=== PATIENT | male | born 1955 | race Two or more races ===

== ENCOUNTER 2017-04-07 09:10 | Emergency (ER) | payer OTHER, MEDICAID ==
[~2017-04-07] VITALS: Ht 172.7 cm; Wt 92.5 kg
[2017-04-07] MEDS ORDERED: PANTOPRAZOLE 40 MG/10 ML VIAL IV STA (09:31)
[2017-04-07] MEDS ORDERED: SODIUM CHLORIDE 0.9% 500 ML IVB ONE (09:31)
[2017-04-07] MEDS ORDERED: MORPHINE SULFATE 4 MG/ML SYRG IV ONE (09:45)
[2017-04-07] MEDS ORDERED: ONDANSETRON HCL 4 MG/2 ML VIAL IV ONE (09:45)
[2017-04-07 09:52] LABS: Basophils # (auto) 0 uL; Basophils % (auto) 0.9 % (0.0-2.0); Eosinophils # (auto) 0.2 uL; Eosinophils % (auto) 4.6 % (0.0-7.0); Hematocrit 42.2 % (41.0-53.0); Hemoglobin 14.4 g/dL (13.5-17.5); Lymphocytes # (auto) 1.8 uL; Lymphocytes % (auto) 33.6 % (10.0-50.0); Mean Corpuscular Hemoglobin 32.9 pg (28.0-32.0); Mean Corpuscular Hgb Conc. 34.2 g/dL (32.0-36.0); Mean Corpuscular Volume 96.1 fL (80.0-100.0); Mean Platelet Volume 7.9 fL (6.9-10.8); Monocytes # (auto) 0.5 uL; Monocytes % (auto) 8.6 % (0.0-12.0); Neutrophils # (auto) 2.7 uL; Neutrophils % (auto) 52.3 % (37.0-80.0); Nucleated Red Blood Cells % 0.1 %; Platelet Count (auto) 221 10^3/uL (140-450); Red Cell Distribution Width 13.4 % (11.8-14.3); White Blood Cell 5.2 10^3/uL (4.4-10.8)
[2017-04-07 10:24] LABS: Alkaline Phosphatase 62 U/L (45-117); Amylase 38 U/L (25-115); Anion Gap 9 (5-15); Aspartate Aminotransferase 15 U/L (15-37); BUN/Creatinine Ratio 11.4; Bilirubin, Total 0.6 mg/dL (0.2-1.0); Blood Urea Nitrogen 8 mg/dL (7-18); Calcium 8.4 mg/dL (8.5-10.1); Carbon Dioxide 24 mmol/L (21-32); Chloride 105 mmol/L (98-107); GFR African American 148 mL/min; GFR Non-African American 122 mL/min; Glucose 117 mg/dL (74-106); Magnesium 2.2 mg/dL (1.6-2.6); Potassium 3.8 mmol/L (3.5-5.1); Sodium 138 mmol/L (136-145); Total Protein 7.5 g/dL (6.4-8.2)
[2017-04-07 14:02] VITALS: BP 114/79
[2017-04-07 14:26] LABS: Urine Bilirubin Negative (Negative); Urine Blood Negative /uL (Negative); Urine Glucose Normal (Normal); Urine Ketone Negative (Negative); Urine Nitrite Negative (Negative); Urine RBC <1 /hpf (0 - 3); Urine Urobilinogen Normal (Negative)
[2017-04-07 14:47] LABS: Urine Color Straw (Yellow)
== END 2017-04-07 14:19 | disposition home or self-care (01) ==
LOC: ER 09:10
DX: K29.70 Gastritis, unspecified, without bleeding (principal); R07.89 Other chest pain; E78.5 Hyperlipidemia, unspecified; Z88.0 Allergy status to penicillin
CPT/HCPCS: 36415; 76705; 80053; 81001; 82150; 83690; 83735; 84484; 85025; 93005; 94761; 96361; 96374; 96375; 99285; C9113; J2270; J2405; J7040

== ENCOUNTER 2021-03-24 06:16 | Day surgery (SDC) | payer OTHER, MEDICAID ==
[~2021-03-24] VITALS: Ht 172.7 cm; Wt 90.7 kg
[~2021-03-24 06:16] MED LIST: AMIT50TA5 PO; ASPI-543 PO; ATOR80TA PO; CHOL1CAP58 PO; DIPH50TA9 PO; DOCU100C10 PO; DOCU100T15 PO; ETOD400T3 PO; FINA5TAB4 PO; HYDR-4833 PO; LACT10SO3 PO; LUBI8CAP4 PO; MET50T PO; METO10TA3 PO; OMEP-260 PO; TAMS0.4C36 PO
[2021-03-24] MEDS ORDERED: VERAPAMIL 2.5MG/ML INJ 2ML VIAL IV ONE (07:45)
[2021-03-24] MEDS ORDERED: HEPARIN SODIUM (PORCINE) 5000 UNITS/ML 1ML VIAL ONE (07:45)
[2021-03-24] MEDS ORDERED: ANGIOMAX 250 MG VIAL IV ONE (07:45)
[2021-03-24] MEDS ORDERED: fentaNYL CITRATE 100 MCG/2 ML VL ONE (07:45)
[2021-03-24] MEDS ORDERED: MIDAZOLAM HCL 2MG/2ML 2ml VIAL (1mg/ml) ONE (07:46)
[2021-03-24] MEDS ORDERED: SODIUM CHL 0.9% 0 ML ONE (07:46)
[2021-03-24] MEDS ORDERED: LIDOCAINE 2%HCL (LOCAL ANESTH.) INJ 20ML MDV ONE (07:49)
[2021-03-24] MEDS ORDERED: IOHEXOL 350 MG/ML 100ML IJ ONE (07:49)
[2021-03-24] MEDS ORDERED: IODIXANOL 320MG/ML 100ML BTL IV ONE (08:44)
== END 2021-03-24 11:20 | disposition home or self-care (01) ==
LOC: CATH 06:16
PROVIDERS: ATTEND Internal Medicine Cardiovascular Disease
DX: R94.39 Abnormal result of other cardiovascular function study (principal); I25.10 Atherosclerotic heart disease of native coronary artery without angina pectoris; I10 Essential (primary) hypertension; E78.5 Hyperlipidemia, unspecified; Z87.891 Personal history of nicotine dependence; K21.9 Gastro-esophageal reflux disease without esophagitis; M19.90 Unspecified osteoarthritis, unspecified site; Z20.822 Contact with and (suspected) exposure to COVID-19
CPT/HCPCS: 93458; C1769; C1894; J1644; J2250; J3010; J7030; Q9967; U0003; 99152

== ENCOUNTER 2021-04-19 03:04 | Emergency (ER) | payer OTHER, MEDICAID ==
[~2021-04-19] VITALS: Ht 177.8 cm; Wt 95.3 kg
[~2021-04-19 03:04] MED LIST changes: -DOCU100C10 PO
[2021-04-19 03:10] VITALS: BP 132/77
[2021-04-19 04:53] LABS: Urine Bacteria FEW /hpf (None Seen); Urine Blood 3+ /uL (Negative); Urine Specific Gravity 1.005 (1.001-1.035); Urine WBC 4 /hpf (0 - 3)
[2021-04-19 06:02] LABS: Basophils # (auto) 0.1 10 ^3/uL (0-0.2); Basophils % (auto) 0.6 % (0.0-2.0); Eosinophils # (auto) 0.2 10 ^3/uL (0-0.8); Eosinophils % (auto) 1.7 % (0.0-7.0); Hematocrit 45.4 % (41.0-53.0); Hemoglobin 15.4 g/dL (13.5-17.5); Lymphocytes # (auto) 1.6 10 ^3/uL (0.4-5.4); Lymphocytes % (auto) 17.6 % (10.0-50.0); Mean Corpuscular Hemoglobin 31.7 pg (28.0-32.0); Mean Corpuscular Volume 93.3 fL (80.0-100.0); Monocytes # (auto) 0.6 10 ^3/uL (0-1.3); Monocytes % (auto) 6.6 % (0.0-12.0); Neutrophils # (auto) 6.8 10 ^3/uL (1.6-8.6); Neutrophils % (auto) 73.5 % (37.0-80.0); Red Blood Cells 4.87 10^6/uL (4.5-5.90); Red Cell Distribution Width 14.3 % (11.8-14.3); White Blood Cell 9.2 10^3/uL (4.4-10.8)
[2021-04-19 06:19] LABS: Albumin 4.1 g/dL (3.4-5.0); BUN/Creatinine Ratio 11.9; Calcium 9.3 mg/dL (8.5-10.1); Potassium 3.4 mmol/L (3.5-5.1)
[2021-04-19 06:22] LABS: Bilirubin, Total 0.5 mg/dL (0.2-1.0); Total Protein 8.5 g/dL (6.4-8.2)
[2021-04-19] MEDS ORDERED: PERCOT PO (11:53)
[2021-04-19] MEDS ORDERED: TAM04C PO (11:53)
[2021-04-19] MEDS ORDERED: CIPR-173 PO (11:53)
== END 2021-04-19 14:47 | disposition home or self-care (01) ==
LOC: ER 03:04 → EDBD 03:04 → ER 14:45
DX: N20.0 Calculus of kidney (principal); N13.30 Unspecified hydronephrosis; E78.5 Hyperlipidemia, unspecified; Z88.0 Allergy status to penicillin
CPT/HCPCS: 36415; 74176; 80053; 81001; 85025

== ENCOUNTER → 2021-05-20 | Outpatient (CLI) | payer MEDICAID ==
[~2021-05-20] MED LIST changes: +CIPR-173 PO; +PERCOT PO; +TAM04C PO
[2021-05-20 14:20] LABS: Urine Bacteria NONE SEEN /hpf (None Seen); Urine Blood 3+ /uL (Negative); Urine Hyaline Cast FEW /lpf (0 - 2); Urine Mucus FEW (None Seen); Urine WBC 91 /hpf (0 - 3)
== END | disposition home or self-care (01) ==
LOC: LAB 13:51
PROVIDERS: ATTEND Urology
DX: N39.0 Urinary tract infection, site not specified (principal)
CPT/HCPCS: 81001; 87086

== ENCOUNTER 2021-08-02 06:35 | Day surgery (SDC) | payer OTHER, MEDICAID ==
[2021-07-30 10:55] LABS: Basophils # (auto) 0 10 ^3/uL (0-0.2); Basophils % (auto) 0.8 % (0.0-2.0); Eosinophils # (auto) 0.3 10 ^3/uL (0-0.8); Eosinophils % (auto) 5.4 % (0.0-7.0); Hematocrit 38.9 % (41.0-53.0); Hemoglobin 13.6 g/dL (13.5-17.5); Lymphocytes # (auto) 1.8 10 ^3/uL (0.4-5.4); Lymphocytes % (auto) 34.3 % (10.0-50.0); Mean Corpuscular Hemoglobin 32.6 pg (28.0-32.0); Mean Corpuscular Hgb Conc. 34.9 g/dL (32.0-36.0); Mean Corpuscular Volume 93.5 fL (80.0-100.0); Monocytes # (auto) 0.4 10 ^3/uL (0-1.3); Monocytes % (auto) 8.5 % (0.0-12.0); Neutrophils # (auto) 2.6 10 ^3/uL (1.6-8.6); Nucleated Red Blood Cells % 0.1 %; Red Blood Cells 4.17 10^6/uL (4.5-5.90); Red Cell Distribution Width 13.6 % (11.8-14.3); White Blood Cell 5.1 10^3/uL (4.4-10.8)
[2021-07-30 11:06] LABS: INR 1.1 (0.9-1.15); Partial Thromboplastin Time 29.6 sec (23.6-33.0)
[2021-07-30 11:10] LABS: Urine Bacteria NONE SEEN /hpf (None Seen); Urine Blood 1+ /uL (Negative); Urine Specific Gravity 1.007 (1.001-1.035); Urine WBC 1 /hpf (0 - 3)
[2021-07-30 11:19] LABS: Potassium 3.6 mmol/L (3.5-5.1)
[2021-07-30 11:24] LABS: Albumin 3.5 g/dL (3.4-5.0); BUN/Creatinine Ratio 8.8; Bilirubin, Total 0.5 mg/dL (0.2-1.0); Calcium 8.4 mg/dL (8.5-10.1); Total Protein 7.3 g/dL (6.4-8.2)
[~2021-08-02] VITALS: Ht 172.7 cm; Wt 98.0 kg
[~2021-08-02 06:35] MED LIST changes: +HYDR-4072 PO; -HYDR-4833 PO; -LUBI8CAP4 PO; +METR500T PO; -TAMS0.4C36 PO
[2021-08-02] MEDS ORDERED: CIPROFLOXACIN 400MG/200ML 200 ML IV ONE (08:06)
[2021-08-02] MEDS ORDERED: ONDANSETRON HCL 4 MG/2 ML VIAL ONE (09:32)
[2021-08-02] MEDS ORDERED: fentaNYL CITRATE 100 MCG/2 ML VL ONE (09:32)
[2021-08-02] MEDS ORDERED: MIDAZOLAM HCL 2MG/2ML 2ml VIAL (1mg/ml) ONE (09:32)
[2021-08-02] MEDS ORDERED: DexAMETHasone SOD PHOS 10MG/1ML VIAL INJ ONE (09:32)
[2021-08-02] MEDS ORDERED: PROPOFOL 10 MG/ML 20 ML IV ONE (09:32)
[2021-08-02] MEDS ORDERED: SODIUM CHLORIDE LOCK 10 ML ONE (09:32)
[2021-08-02] MEDS ORDERED: IOHEXOL 300 MG/ML 100ML BOTTLE IJ ONE (10:27)
[2021-08-02] MEDS ORDERED: POTATAB2 PO (10:51)
[2021-08-02 12:15] VITALS: BP 101/62
== END 2021-08-02 12:33 | disposition home or self-care (01) ==
LOC: SUR 06:35
PROVIDERS: ATTEND Urology
DX: N20.2 Calculus of kidney with calculus of ureter (principal); M19.90 Unspecified osteoarthritis, unspecified site; K21.9 Gastro-esophageal reflux disease without esophagitis; I10 Essential (primary) hypertension; G47.00 Insomnia, unspecified; Z95.0 Presence of cardiac pacemaker; Z88.0 Allergy status to penicillin; Z88.6 Allergy status to analgesic agent; Z79.899 Other long term (current) drug therapy; Z20.822 Contact with and (suspected) exposure to COVID-19; Z87.891 Personal history of nicotine dependence
CPT/HCPCS: 36415; 50590; 74420; 80053; 81001; 85025; 85610; 85730; J0744; J1100; J2250; J2405; J2704; J3010; Q9967; U0003

== ENCOUNTER 2022-02-23 09:17 | Inpatient (IN) | payer OTHER, MEDICAID ==
[~2022-02-23] VITALS: Ht 170.2 cm; Wt 81.8 kg
[~2022-02-23 09:17] MED LIST changes: +POTATAB2 PO
[2022-02-23] MEDS ORDERED: ASPirin 81 mg TAB PO ONE (10:15)
[2022-02-23] MEDS ORDERED: SODIUM CHLORIDE 0.9% 1,000 ML IV ONE (10:15)
[2022-02-23 10:36] LABS: BUN/Creatinine Ratio 12.7; Calcium 9.1 mg/dL (8.5-10.1); Magnesium 2.1 mg/dL (1.6-2.6)
[2022-02-23 10:39] LABS: Bilirubin, Total 0.5 mg/dL (0.2-1.0); INR 1.13 (0.9-1.15); Partial Thromboplastin Time 28.8 sec (24.6-33.4); Total Protein 7.5 g/dL (6.4-8.2)
[2022-02-23 10:44] LABS: Basophils # (auto) 0 10 ^3/uL (0-0.2); Basophils % (auto) 0.8 % (0.0-2.0); Eosinophils # (auto) 0.1 10 ^3/uL (0-0.8); Eosinophils % (auto) 2.8 % (0.0-7.0); Hematocrit 43.8 % (41.0-53.0); Hemoglobin 14.3 g/dL (13.5-17.5); Lymphocytes # (auto) 1.3 10 ^3/uL (0.4-5.4); Lymphocytes % (auto) 26.2 % (10.0-50.0); Mean Corpuscular Hemoglobin 31.3 pg (28.0-32.0); Mean Corpuscular Hgb Conc. 32.6 g/dL (32.0-36.0); Mean Corpuscular Volume 96.2 fL (80.0-100.0); Monocytes # (auto) 0.4 10 ^3/uL (0-1.3); Monocytes % (auto) 8.4 % (0.0-12.0); Neutrophils # (auto) 3.1 10 ^3/uL (1.6-8.6); Neutrophils % (auto) 61.8 % (37.0-80.0); Nucleated Red Blood Cells % 0.1 %; Red Blood Cells 4.55 10^6/uL (4.5-5.90); Red Cell Distribution Width 14.7 % (11.8-14.3)
[2022-02-23 11:15] LABS: Urine Bacteria NONE SEEN /hpf (None Seen); Urine Blood TRACE /uL (Negative); Urine Specific Gravity 1.005 (1.001-1.035); Urine WBC <1 /hpf (0 - 3)
[2022-02-23] MEDS ORDERED: ONDANSETRON HCL 4 MG/2 ML VIAL IV PRN ×2 (14:00→23:00)
[2022-02-23] MEDS ORDERED: MORPHINE SULFATE INJ 2 MG/ml SYRG IV PRN ×2 (14:00→23:00)
[2022-02-23] MEDS ORDERED: ACETAMINOPHEN 325 MG TAB PO PRN ×2 (14:00→23:00)
[2022-02-23] MEDS ORDERED: NITROGLYCERIN 0.4 MG SL TAB SL PRN ×3 (14:00→23:00)
[2022-02-23] MEDS ORDERED: MORPHINE SULFATE 4 MG/ML SYR/VIAL IV PRN (14:00)
[2022-02-23] MEDS ORDERED: FUROSEMIDE 40 MG/4 ML VIAL IV ONE (14:30)
[2022-02-23 14:48] LABS: INR 1.17 (0.9-1.15)
[2022-02-23] MEDS ORDERED: ATORVASTATIN 20 MG TAB PO SCH (18:00)
[2022-02-23] MEDS ORDERED: IODIXANOL 320MG/ML 100ML BTL IV ONE (19:23)
[2022-02-23] MEDS ORDERED: ETODOLAC 400 MG PO SCH (22:00)
[2022-02-23] MEDS ORDERED: METOPROLOL TARTRATE 50 MG TAB PO SCH ×2 (22:00)
[2022-02-23] MEDS ORDERED: HYDROcodone-ACET 10/325MG TAB PO SCH (22:00)
[2022-02-23] MEDS ORDERED: AMITRIPTYLINE HCL 10 MG TAB PO SCH ×2 (22:00→22:38)
[2022-02-24 06:45] LABS: Basophils # (auto) 0 10 ^3/uL (0-0.2); Basophils % (auto) 0.6 % (0.0-2.0); Eosinophils # (auto) 0.1 10 ^3/uL (0-0.8); Eosinophils % (auto) 1.9 % (0.0-7.0); Hematocrit 41.5 % (41.0-53.0); Hemoglobin 14.2 g/dL (13.5-17.5); Lymphocytes # (auto) 1.5 10 ^3/uL (0.4-5.4); Lymphocytes % (auto) 25.2 % (10.0-50.0); Mean Corpuscular Hemoglobin 32.7 pg (28.0-32.0); Mean Corpuscular Hgb Conc. 34.2 g/dL (32.0-36.0); Mean Corpuscular Volume 95.3 fL (80.0-100.0); Monocytes # (auto) 0.4 10 ^3/uL (0-1.3); Monocytes % (auto) 6.8 % (0.0-12.0); Neutrophils # (auto) 3.8 10 ^3/uL (1.6-8.6); Neutrophils % (auto) 65.5 % (37.0-80.0); Nucleated Red Blood Cells % 0.1 %; Red Blood Cells 4.36 10^6/uL (4.5-5.90); Red Cell Distribution Width 14.3 % (11.8-14.3); White Blood Cell 5.9 10^3/uL (4.4-10.8)
[2022-02-24 07:12] LABS: Potassium 3.8 mmol/L (3.5-5.1)
[2022-02-24 07:20] LABS: Albumin 3.8 g/dL (3.4-5.0); BUN/Creatinine Ratio 10.5; Bilirubin, Total 0.7 mg/dL (0.2-1.0); Total Protein 7.4 g/dL (6.4-8.2)
[2022-02-24] MEDS ORDERED: PANTOPRAZOLE 40 MG/10 ML VIAL INJ IV SCH ×2 (10:00)
[2022-02-24] MEDS ORDERED: ETODOLAC 400 MG PO SCH (10:00)
[2022-02-24] MEDS ORDERED: FINASTERIDE 5 MG TAB PO SCH ×2 (10:00)
[2022-02-24] MEDS ORDERED: CHOLECALCIFEROL (VITD3) 1,000UNIT=25mCg TAB PO SCH ×2 (10:00)
[2022-02-24] MEDS ORDERED: METOCLOPRAMIDE HCL 10 MG TAB PO SCH ×2 (10:00)
[2022-02-24] MEDS ORDERED: FUROSEMIDE 20 MG/2 ML VIAL IV SCH ×2 (10:00)
[2022-02-24] MEDS ORDERED: METOPROLOL TARTRATE 50 MG TAB PO SCH (10:00)
[2022-02-24] MEDS ORDERED: TAMSULOSIN HYDROCHLORIDE 0.4 MG CAP PO SCH ×2 (10:00)
[2022-02-24] MEDS ORDERED: DOCUSATE SOD 100 MG CAP PO SCH ×2 (10:00)
[2022-02-24] MEDS ORDERED: ENOXAPARIN SOD 40 MG/0.4 ML SYRINGE SC SCH ×2 (10:00)
[2022-02-24] MEDS ORDERED: ASPirin 81 mg TAB PO SCH ×2 (10:00)
[2022-02-24] MEDS: HYDROcodone-ACET 10/325MG TAB PO SCH ×2 (11:47→14:00)
[2022-02-24 13:01] VITALS: BP 115/61
[2022-02-24] MEDS ORDERED: ATORVASTATIN 20 MG TAB PO SCH (18:00)
[2022-02-24] MEDS ORDERED: AMITRIPTYLINE HCL 25 MG TAB PO SCH (22:00)
== END 2022-02-24 14:38 | disposition home or self-care (01) | DRG 291 ==
LOC: ER 09:17 → EDBD 09:17 → TELE 13:54
PROVIDERS: ADMIT Nurse Practitioner Family; ATTEND Nurse Practitioner Acute Care
DX: I11.0 Hypertensive heart disease with heart failure (principal); I50.33 Acute on chronic diastolic (congestive) heart failure; E78.00 Pure hypercholesterolemia, unspecified; N40.0 Benign prostatic hyperplasia without lower urinary tract symptoms; Z20.822 Contact with and (suspected) exposure to COVID-19; M17.0 Bilateral primary osteoarthritis of knee; Z79.899 Other long term (current) drug therapy; Z88.0 Allergy status to penicillin; Z88.6 Allergy status to analgesic agent; Z87.442 Personal history of urinary calculi; Z90.49 Acquired absence of other specified parts of digestive tract; Z95.0 Presence of cardiac pacemaker
CPT/HCPCS: 36415; 71045; 71260; 74177; 80053; 81001; 83735; 83880; 84484; 85025; 85379; 85610; 85730; 87426; 93005; 93306; 96360; C9113; G0378; Q9967

== ENCOUNTER 2023-12-22 14:09 | Emergency (ER) | payer OTHER, MEDICAID ==
[~2023-12-22] VITALS: Ht 172.7 cm; Wt 104.5 kg
[~2023-12-22 14:09] MED LIST changes: +AMIT50TA12 PO; -AMIT50TA5 PO; +ETOD-182 PO; -ETOD400T3 PO; -OMEP-260 PO; +OMEP1CAP70 PO; -TAM04C PO; +TAMS-35 PO
[2023-12-22 14:15] VITALS: BP 135/83; PULSE 86; RESP 18; O2SAT 98
[2023-12-22 15:29] LABS: Basophils # (auto) 0 10 ^3/uL (0-0.2); Basophils % (auto) 0.8 % (0.0-2.0); Eosinophils # (auto) 0.1 10 ^3/uL (0-0.8); Eosinophils % (auto) 2.7 % (0.0-7.0); Hematocrit 40.4 % (41.0-53.0); Hemoglobin 13.8 g/dL (13.5-17.5); Lymphocytes % (auto) 20.3 % (10.0-50.0); Mean Corpuscular Hemoglobin 32.5 pg (28.0-32.0); Mean Corpuscular Hgb Conc. 34.2 g/dL (32.0-36.0); Mean Corpuscular Volume 95.1 fL (80.0-100.0); Monocytes # (auto) 0.6 10 ^3/uL (0-1.3); Monocytes % (auto) 11.7 % (0.0-12.0); Neutrophils # (auto) 3.3 10 ^3/uL (1.6-8.6); Neutrophils % (auto) 64.5 % (37.0-80.0); Platelet Count (auto) 259 10^3/uL (140-450); Red Blood Cells 4.25 10^6/uL (4.5-5.90); Red Cell Distribution Width 14.8 % (11.8-14.3); White Blood Cell 5.1 10^3/uL (4.4-10.8)
[2023-12-22 15:46] LABS: Alanine Aminotransferase 62 U/L (7-40); Albumin 4.7 g/dL (3.2-4.8); Alkaline Phosphatase 51 U/L (46-116); Anion Gap 9 (5-15); Aspartate Aminotransferase 70 U/L (13-40); BUN/Creatinine Ratio 10.5 (10.0-20.0); Bilirubin, Total 0.3 mg/dL (0.2-1.0); Blood Urea Nitrogen 13 mg/dL (9-23); Calcium 9.6 mg/dL (8.7-10.4); Carbon Dioxide 23 mmol/L (20-30); Chloride 106 mmol/L (98-107); Glucose 114 mg/dL (74-106); Lipase 21 U/L (12-53); Potassium 4.1 mmol/L (3.5-5.1); Sodium 138 mmol/L (136-145); Total Protein 7.5 g/dL (5.7-8.2)
[2023-12-22] MEDS: IOHEXOL 300 MG/ML 100ML BOTTLE IJ ONE (17:33)
== END 2023-12-22 20:36 | disposition left against medical advice (07) ==
LOC: ER 14:09 → EDUNIT# 14:09 → EDBD 14:09 → ER 20:36
DX: R10.32 Left lower quadrant pain (principal); E78.5 Hyperlipidemia, unspecified; Z88.0 Allergy status to penicillin; Z88.6 Allergy status to analgesic agent; Z87.442 Personal history of urinary calculi
CPT/HCPCS: 36415; 74176; 74177; 80053; 83605; 83690; 84484; 85025; 93005; 99285; Q9967

== ENCOUNTER 2024-12-25 07:52 | Inpatient (IN) | payer OTHER, MEDICAID ==
[~2024-12-25] VITALS: Ht 172.7 cm; Wt 97.7 kg
--- NOTE | 2024-12-25 08:11 | ED.PDOC ---
GI ASSESSMENT HPI Comments A 69 YEAR OLD MALE PRESENTS TO THE ED WITH COMPLAINT OF LLQ ABDOMINAL PAIN THAT RADIATES TO LEFT LOWER BACK. PATIENT STATES HE HAS BEEN EXPERIENCING LEFT LOWER QUADRANT ABDOMINAL PAIN THAT RADIATES TO HIS LEFT LOWER BACK FOR THE PAST TWO DAYS. PATIENT NOTES THAT HE WENT TO [facility] YESTERDAY WHERE A CT SCAN AND LABS WERE DONE WHICH REVEALED A LEFT RENAL STONE, BUT HE IS NOT SURE OF THE SIZE OF THE STONE. PATIENT DENIES DYSURIA, HEMATURIA, FEVER, CHILLS, SHORTNESS OF BREATH, CHEST PAIN, ABDOMINAL PAIN, NAUSEA, VOMITING, HEADACHE, OR OTHER COMPLAINTS. NO OTHER SYMPTOMS OR MODIFYING FACTORS AT THIS TIME. PATIENT IS ALERT, ORIENTED X 4, AND HAS STEADY GAIT. Chief Complaint: LEFT LOWERABD PAIN Time Seen by MD: 07:53 Primary Care Provider: UNKNOWN Reviewed Notes: Nurses Notes, Medications, Allergies Allergies: Coded Allergies: Penicillins (Verified Allergy, Unknown, 03/22/21) Morphine (Unverified Adverse Reaction, Intermediate, N/V, 07/30/21) Home Meds Active Scripts Potassium Citrate (Urocit-K 10) 1,080 Mg Tab, 1080 MG PO Q8HR for 30 Days, #90 TAB Prov:DEMETRI MANN MD 08/02/21 Tamsulosin Hcl (Flomax) 0.4 Mg Cap, 1 CAP PO DAILY, #30 CAP 0 Refills Prov:ASHWIN NI MD 04/19/21 Oxycodone W/ Acetaminophen (Percocet 5/325MG) 1 Tab Tb, 1 TAB PO BID for 10 Days, #20 TAB Prov:ASHWIN NI MD 04/19/21 Ciprofloxacin Hcl (Cipro) 500 Mg Tab, 500 MG PO DAILY for 7 Days, #7 TAB Prov:ASHWIN NI MD 04/19/21 Reported Medications Hydrocodone-Acetaminophen (Hydrocodone/Acetaminophen 10-325 mg) 1 Tab Tab, 1 TAB PO TID, TAB 07/30/21 Metronidazole (Flagyl) 500 Mg Tab, 500 MG PO, TAB 07/30/21 Docusate Sodium (Docusate Sodium) 100 Mg Tab, 100 MG PO BID PRN for FOR CONSTIPATION 03/22/21 Metoclopramide Hcl (Metoclopramide Hcl) 10 Mg Tab, 10 MG PO DAILY for GERD 03/22/21 Etodolac (Etodolac) 400 Mg Tab, 400 MG PO BID for ARTHRITIS 03/22/21 Aspirin (Aspir-Low) 81 Mg Tab, 81 MG PO DAILY for HEART ATTACK PREVENTION 03/22/21 Omeprazole (Omeprazole Dr) 20 Mg Cap, 20 MG PO QAM for GERD 03/22/21 Lactulose (Lactulose) 10 Gm/15 Ml Judy, 10 GM PO DAILY PRN for CONSTIPATION 03/22/21 Amitriptyline Hcl (Amitriptyline Hcl) 50 Mg Tab, 50 MG PO HS PRN for FOR INSOMNIA 03/22/21 Finasteride (Finasteride) 5 Mg Tab, 5 MG PO DAILY for ENLARGED PROSTATE 03/22/21 Cholecalciferol (Vitamin D3 1.25 mg (82624 Ut)) 1 Cap Cap, 1 CAP PO DAILY for SUPPLEMENT 03/22/21 Diphenhydramine Hcl (Diphenhydramine Hcl) 50 Mg Tab, 50 MG PO DAILY PRN for ALLERGIES 03/22/21 Atorvastatin Calcium (Lipitor) 80 Mg Tab, 1 TAB PO QPM for HIGH CHOLESTEROL 03/22/21 Metoprolol Tartrate (LOPRESSOR TABLET) 50 Mg Tb, 1 TAB PO TID for HYPERTENSION 03/22/21 Information Source: Patient Mode of Arrival: Ambulatory Timing: Days Duration: Since onset, Days Prehospital treatment: None Quality: Aching, Colicky Vomitus: None Stool: Normal Severity: Moderate Recent: None Recent Hx of: None Pain Location: LLQ Modifying Factors: Nothing Associated sign and symptoms: Nausea, Abdominal Pain Past Medical History PAST MEDICAL HISTORY: High Lipids, Kidney Stones Surgical History: Appendectomy, Pacemaker Family History Family History: Reviewed,noncontributory to illness Social History Smoker: Non-Smoker Alcohol: Denies ETOH Use Drugs: Denies Drug Use Lives In: Home Constitutional: denies: chills, diaphoresis, fatigue, fever, malaise, sweats, weakness, others EENTM: denies: blurred vision, double vision, ear bleeding, ear discharge, ear drainage, ear pain, ear ringing, eye pain, eye redness, hearing loss, mouth pain, mouth swelling, nasal discharge, nose bleeding, nose congestion, nose pain, photophobia, tearing, throat pain, throat swelling, voice changes, others Respiratory: denies: cough, hemoptysis, orthopnea, SOB at rest, shortness of breath, SOB with excertion, stridor, wheezing, others Cardiovascular: denies: chest pain, dizzy spells, diaphoresis, Dyspnea on exertion, edema, irregular heart beat, left arm pain, lightheadedness, palpitations, PND, syncope, others Gastrointestinal: reports: abdominal pain (LLQ ABDOMINAL PAIN); denies: abdomen distended, blood streaked bowels, constipated, diarrhea, dysphagia, difficulty swallowing, hematemesis, melena, nausea, poor appetite, poor fluid intake, rectal bleeding, rectal pain, vomiting, others Genitourinary: denies: burning, dysuria, flank pain, frequency, hematuria, inco ntinence, penile discharge, penile sore, pain, testicle pain, testicle swelling, urgency, others Neurological: denies: dizziness, fainting, headache, left sided numbness, left sided weakness, numbness, paresthesia, pre-existing deficit, right sided numbness, right sided weakness, seizure, speech problems, tingling, tremors, weakness, others Musculoskeletal: reports: back pain (LEFT LOWER BACK); denies: gout, joint pain, joint swelling, muscle pain, muscle stiffness, neck pain, others Integumetry: denies: bruises, change in color, change in hair/nails, dryness, laceration, lesions, lumps, rash, wounds, others Allergic/Immunocompromised: denies: Difficulty Healing, Frequent Infections, Hives, Itching, others Hematologic/Lymphatic: denies: anemia, blood clots, easy bleeding, easy bruising, swollen glands, others Endocrine: denies: excessive hunger, excessive sweating, excessive thirst, excessive urination, flushing, intolerance to cold, intolerance to heat, unexplained weight gain, unexplained weight loss, others Psychiatric: denies: anxiety, bipolar disorder, depression, hopeless, panic dis order, schizophrenia, sleepless, suicidal, others All Other Systems: Reviewed and Negative Physical Exam General Appearance: No Apparent Distress, Normal HEENT: Normal ENT Inspection, PERRL/EOMI, Pharynx Normal, TMs Normal Neck: Full Range of Motion, Non-Tender, Normal, Normal Inspection Respiratory: Chest Non-Tender, Lungs Clear, No Accessory Muscle Use, No Respiratory Distress, Normal Breath Sounds Cardiovascular: No Edema, No JVD, No Murmur, No Gallop, Normal Peripheral Pulses, Regular Rate/Rhythm Breast Exam: Deferred Gastrointestinal: LLQ, No Organomegaly, No Pulsatile Mass, Normal Bowel Sounds, Soft, Tenderness (ON LEFT LOWER ABD TO LEFT LOWER BACK, NO GUARDING AND REBOUND TENDERNESS. ) Genitalia: Deferred Pelvic: Normal External Exam Rectal: Deferred Extremities: No calf tenderness, Normal capillary refill, Normal inspection, Normal range of motion, Non-tender, No pedal edema Musculoskeletal : Apperance: Normal Neurologic: Alert, contact worker II-XII nml as Tested, No Motor Deficits, Normal Affect, Normal Mood, No Sensory Deficits Cerebellar Function: Normal Reflexes: Normal Skin: Dry, Normal Color, Warm Peripheral Pulses: 2+ carotid (R), 2+ carotid (L), 2+ dorsalis pedis (R), 2+ dorsalis pedis (L) Lymphatic: No Adenopathy Was a procedure done? Was a procedure done?: No GI differential Dx Differential Diagnosis: Constipation, Diverticular disease, Gastritis/PUD, Gastroenteritis, Hepatitis, Inflammatory BD, Pancreatitis, UTI, Urolithiasis, Renal Failure, Kidney Stone X-Ray, Labs, Meds, VS Vital Signs Date Time Temp Pulse Resp B/P (MAP) Pulse Ox O2 Delivery O2 Flow Rate FiO2 12/25/24 11:24 63 16 92 Room Air* 0 21 12/25/24 08:32 69 18 94 Room Air 12/25/24 08:30 69 18 98/66 (77) 94 12/25/24 07:54 97.5 75 18 122/76 92 97.5 Lab Test 12/25/24 08:28 12/25/24 08:12 Range/Units White Blood Count 4.6 4.4-10.8 10^3/uL Red Blood Count 4.05 L 4.5-5.90 10^6/uL Hemoglobin 12.9 L 13.5-17.5 g/dL Hematocrit 37.7 L 41.0-53.0 % Mean Corpuscular Volume 92.9 80.0-100.0 fL Mean Corpuscular Hemoglobin 31.8 28.0-32.0 pg Mean Corpuscular Hemoglobin Concent 34.2 32.0-36.0 g/dL Red Cell Distribution Width 15.8 H 11.8-14.3 % Platelet Count 273 140-450 10^3/uL Mean Platelet Volume 7.7 6.9-10.8 fL Neutrophils (%) (Auto) 61.4 37.0-80.0 % Lymphocytes (%) (Auto) 26.7 10.0-50.0 % Monocytes (%) (Auto) 7.7 0.0-12.0 % Eosinophils (%) (Auto) 3.5 0.0-7.0 % Basophils (%) (Auto) 0.7 0.0-2.0 % Neutrophils # (Auto) 2.8 1.6-8.6 10 ^3/uL Lymphocytes # (Auto) 1.2 0.4-5.4 10 ^3/uL Monocytes # (Auto) 0.4 0-1.3 10 ^3/uL Eosinophils # (Auto) 0.2 0-0.8 10 ^3/uL Basophils # (Auto) 0 0-0.2 10 ^3/uL Nucleated Red Blood Cells 0.1 % Sodium Level 139 136-145 mmol/L Potassium Level 3.8 3.5-5.1 mmol/L Chloride Level 104 98-107 mmol/L Carbon Dioxide Level 25 20-31 mmol/L Anion Gap 10 5-15 Blood Urea Nitrogen 11 9-23 mg/dL Creatinine 1.21 0.700-1.30 mg/dL Glomerular Filtration Rate Calc 65 >90 mL/min BUN/Creatinine Ratio 9.1 L 10.0-20.0 Serum Glucose 113 H 74-106 mg/dL Calcium Level 9.6 8.7-10.4 mg/dL Urine Color Yellow Yellow Urine Clarity Turbid H Clear Urine pH 5.5 5.0-9.0 Urine Specific [place] 1.036 H 1.001-1.035 Urine Protein 1+ H Negative Urine Ketones Negative Negative Urine Blood 3+ H Negative /uL Urine Nitrite Negative Negative Urine Bilirubin Negative Negative Urine Urobilinogen Normal Negative mg/dL Urine Leukocyte Esterase Negative Negative /uL Urine RBC 392 0 - 3 /hpf Urine Microscopic WBC 6 H 0-3 /HPF Urine Squamous Epithelial Cells None seen <5 /hpf Urine Bacteria None seen None Seen /hpf Urine Mucus Few None Seen Urine Glucose Normal Normal mg/dL Current Medications Medications (Trade) Dose Ordered Sig/Alok Route Start Time Stop Time Status Last Admin Sodium Chloride 1,000 ml @ 1,000 mls/hr Q1H ONCE IV 12/25/24 08:15 12/25/24 09:14 DC 9/10/25 10:14 Ketorolac Tromethamine (Toradol Injection) 15 mg ONCE ONCE IV 12/25/24 08:15 12/25/24 08:16 DC 12/25/24 10:14 Acetaminophen/ Hydrocodone Bitart (Turney 10/325MG Tab) 1 tab ONCE ONCE PO 12/25/24 08:15 12/25/24 08:16 DC 12/25/24 08:33 Tamsulosin HCl (Flomax) 0.8 mg ONCE ONCE PO 12/25/24 11:00 12/25/24 11:01 DC 12/25/24 11:21 CLINICAL INFORMATION: Left lower abdominal pain radiating to the left lower back. TECHNIQUE: Axial CT images of the abdomen and pelvis were obtained without IV contrast. Coronal and sagittal reformatted images were obtained, reviewed, and stored. Evaluation of the parenchymal organs is limited without IV contrast. Evaluation of the bowel and mesentery is limited without oral contrast. All CT scans at this medical facility are performed using dose modulation techniques as appropriate to a performed exam including the following: Automated exposure control was utilized; adjustment of the MA and/or KV according to patient size; and use of iterative reconstruction technique. CTDIvol = 18.42 mGy DLP = 1126.04 mGy-cm COMPARISON: CT CT AB PEL WO CON-NO ORAL OR IV on DOS: 12/22/23, ECIDC on DOS: 02/23/22, CT ABD PELVIS WO CONTRAST on DOS: 04/19/21 FINDINGS: Lung bases: Dependent atelectasis in the lower lobes. Liver: Grossly unremarkable in its noncontrast enhanced appearance. No abnormal density or focal lesion identified. Biliary: Increased density in the gallbladder, possible sludge or vicarious excretion of contrast. No biliary ductal dilatation. Spleen: Unremarkable. Pancreas: Moderate fatty changes in the pancreas. Adrenal glands: Unremarkable. No mass. Kidneys: There is contrast visualized in the renal collecting systems and bladder, from recent IV contrast administration. Moderate left hydronephrosis. Can not exclude obstructing calculus in the distal left ureter, although difficult to delineate due to contrast in the left ureter. No contrast visualize d in the most distal aspect of the left ureter at the time of imaging. Multiple nonobstructing right renal calculi are seen. Limited evaluation for left renal calculi due to contrast in the left renal collecting system. Aorta/Vascular: Scattered atherosclerotic calcification. No abdominal aortic aneurysm. Retroperitoneum: No mass or lymphadenopathy. Bowel/mesentery: No small bowel obstruction. No free air or free fluid. Appendix is not visualized, appears to be surgically absent. Surgical anastomosis at the sigmoid colon. There are scattered small colonic diverticula without adjacent inflammatory changes to suggest diverticulitis. Calcific densities in the stomach, likely ingested material. Pelvic organs: Grossly unremarkable. Bladder: Excretion of IV contrast into the bladder. Moderate circumferential thickening of the bladder wall, may be partly due to underdistention. Abdominal wall: Small fat containing umbilical hernia. Supraumbilical ventral hernia with a loop of transverse colon extending into the hernia sac without definite evidence of obstruction. Bones: No acute fracture or suspicious intraosseous lesion. IMPRESSION: 1. Moderate left hydronephrosis. There is contrast in the renal collecting systems and bladder from recent IV contrast administration, limiting evaluation for renal and ureteral calculi. Possible obstructing calculus in the distal left ureter, with no contrast visualized in the most distal portion of the left ureter at the time of imaging. There are nonobstructing right renal calculi visualized. 2. Bladder wall thickening may be due to underdistention. Correlate clinically to exclude cystitis. 3. Supraumbilical ventral hernia containing a loop of transverse colon without definite evidence of obstruction. Correlate with clinical findings. 4. Small fat containing umbilical hernia. 5. Scattered colonic diverticula without adjacent inflammatory changes to suggest diverticulitis. 6. Additional findings as described above. ATED BY: JUAN MIGUEL WOODS DO DICTATED DATE/TIME: 12/25/24917 SIGNED BY: JUAN MIGUEL WOODS DO SIGNED DATE/TIME: 12/25/24917 CC: X-Ray, Labs, Meds, VS Comment EXTERNAL MEDICAL RECORDS REVIEWED: [NONE] INDEPENDENT HISTORIANS: [NONE] SOCIAL DETERMINANTS OF HEALTH: [NONE] LABS ORDERED: CBC, BMP, UA REVIEWED AND INTERPRETED RESULTS: BLOOD 3+ IMAGING ORDERED: CT ABD/PEL TREATMENTS ORDERED: NS 1L IV, TORADOL 15 MG IV, NORCO 5/325 MG P.O. PROCEDURES PERFORMED: NONE CRITICAL CARE TIME: NONE I HAVE DISCUSSED THE PATIENT WITH THE ATTENDING PHYSICIAN DR. GONZALEZ AND HE AGREES WITH THE PATIENT'S PLAN OF CARE. UPON MY PHYSICAL EXAMINATION, THE PATIENT HAD NO CVA TENDERNESS NOTED UPON PALP ATION AT THIS TIME. LABS WERE ORDERED FOR THE PATIENT WENT TO REVEALED BLOOD 3+ IN HIS URINE. A CT SCAN OF HIS ABDOMEN AND PELVIS WAS DONE WHICH REVEALED A NONOBSTRUCTING RIGHT RENAL STONE AND A POSSIBLE OBSTRUCTING CALCULUS IN THE LEFT DISTAL URETER. DUE TO THE PATIENT'S CT SCAN RESULTS, I HAVE DETERMINED THE PATIENT SHOULD BE ADMITTED FOR FURTHER TREATMENT AND EVALUATION. THE ON-CALL ADMITTING PHYSICIAN WILL BE CONTACTED FOR ADMISSION OF THIS PATIENT. Images Reviewed?: Images reviewed and evaluated by me Time of 1ST Reevaluation: 10:00 Reevaluation 1ST: Unchanged Patient Education/Counseling: Diagnosis, Treatment Family Education/Counseling: Diagnosis, Treatment Medical Screening: No EMC Exist At This Time SEPSIS Sepsis Screen Date sepsis recognized/suspect: Dec 25, 2024 Time Sepsis recognized/suspect: 754 Recent Procedure: No On Antibiotic Therapy: No Respiratory Rate >20: No Heart Rate >90: No Temp<36 C (96.8 F) or >38.3 C: No SBP <90 or MAP <65 mmHG: No New Acute Mental Status Change: No Is the patient on CPAP, BIPAP,: No Physician Orders Heplock Iv (12/25/24 ) Ct Ab Pel Wo Con-No Oral Or Iv (12/25/24 08:05) Vital Signs Date Time Temp Pulse Resp B/P (MAP) Pulse Ox O2 Delivery O2 Flow Rate FiO2 12/25/24 11:24 63 16 92 Room Air* 0 21 12/25/24 08:32 69 18 94 Room Air 12/25/24 08:30 69 18 98/66 (77) 94 12/25/24 07:54 97.5 75 18 122/76 92 97.5 Laboratory Tests Test 12/25/24 08:28 White Blood Count 4.6 10^3/uL (4.4-10.8) Medications Medications Dose Ordered Sig/Alok Route Start Time Stop Time Status Last Admin Dose Admin Acetaminophen/ Hydrocodone Bitart 1 tab ONCE ONCE PO 12/25/24 08:15 12/25/24 08:16 DC 12/25/24 08:33 Ketorolac Tromethamine 15 mg ONCE ONCE IV 12/25/24 08:15 12/25/24 08:16 DC 12/25/24 10:14 Sodium Chloride 1,000 ml @ 1,000 mls/hr Q1H ONCE IV 12/25/24 08:15 12/25/24 09:14 DC 12/25/24 10:14 Tamsulosin HCl 0.8 mg ONCE ONCE PO 12/25/24 11:00 12/25/24 11:01 DC 12/25/24 11:21 Departure 1 Departure Time of Disposition: 10:00 Impression: Primary Impression: Hydronephrosis with obstructing calculus Additional Impression: Right renal stone Disposition: ADMITTED INPATIENT Condition: Serious Critical Care Note Critical Care Time?: No Stability Stability form required: Yes Unstable for transfer: Requires medication, ED Physician Assesment, Possible rapid decline I personally scribed for GRICELDA QUAN ([email or web address]) on 12/25/24 at 08:11. Electronically submitted by Beny Dueñas ([email or web address]). I personally scribed for GRICELDA QUAN ([email or web address]) on 12/25/24 at 09:29. Electronically submitted by Beny Dueñas ([email or web address]). GRICELDA QUAN Dec 25, 2024 08:11
[2024-12-25 08:26] LABS: Urine Protein, UAD 1+ (Negative)
[2024-12-25] MEDS: HYDROcodone-ACET 10/325MG TAB PO ONE (08:33)
[2024-12-25 08:38] LABS: Hematocrit 37.7 % (41.0-53.0); Hemoglobin 12.9 g/dL (13.5-17.5); Mean Corpuscular Hemoglobin 31.8 pg (28.0-32.0); Mean Corpuscular Volume 92.9 fL (80.0-100.0); Nucleated Red Blood Cells % 0.1 %
[2024-12-25 08:48] LABS: Chloride 104 mmol/L (98-107); Potassium 3.8 mmol/L (3.5-5.1); Sodium 139 mmol/L (136-145)
[2024-12-25 08:49] LABS: Anion Gap 10 (5-15); Calcium 9.6 mg/dL (8.7-10.4); Carbon Dioxide 25 mmol/L (20-31)
[2024-12-25 08:54] LABS: BUN/Creatinine Ratio 9.1 (10.0-20.0); Blood Urea Nitrogen 11 mg/dL (9-23)
[2024-12-25 08:55] LABS: Glucose 113 mg/dL (74-106)
--- NOTE | 2024-12-25 09:20 | DVH ---
CLINICAL INFORMATION: Left lower abdominal pain radiating to the left lower back. TECHNIQUE: Axial CT images of the abdomen and pelvis were obtained without IV contrast. Coronal and s agittal reformatted images were obtained, reviewed, and stored. Evaluation of the parenchymal organs is limited without IV contrast. Evaluation of the bowel and mesentery is limited without oral contras t. All CT scans at this medical facility are performed using dose modulation techniques as appropriat e to a performed exam including the following: Automated exposure control was utilized; adjustment of the MA and/or KV according to patient size; and use of iterative reconstruction technique. CTDIvol = 18.42 mGy DLP = 1126.04 mGy-cm COMPARISON: CT CT AB PEL WO CON-NO ORAL OR IV on DOS: 12/22/23, ECIDC on DOS: 02/23/22, CT ABD PELVIS WO CONTRAST on DOS: 04/19/21 FINDINGS: Lung bases: Dependent atelectasis in the lower lobes. Liver: Grossly unremarkable in its noncontrast enhanced appearance. No abnormal density or focal lesi on identified. Biliary: Increased density in the gallbladder, possible sludge or vicarious excretion of contrast. No biliary ductal dilatation. Spleen: Unremarkable. Pancreas: Moderate fatty changes in the pancreas. Adrenal glands: Unremarkable. No mass. Kidneys: There is contrast visualized in the renal collecting systems and bladder, from recent IV co ntrast administration. Moderate left hydronephrosis. Can not exclude obstructing calculus in the dis david left ureter, although difficult to delineate due to contrast in the left ureter. No contrast visu alized in the most distal aspect of the left ureter at the time of imaging. Multiple nonobstructing r ight renal calculi are seen. Limited evaluation for left renal calculi due to contrast in the left re nal collecting system. Aorta/Vascular: Scattered atherosclerotic calcification. No abdominal aortic aneurysm. Retroperitoneum: No mass or lymphadenopathy. Bowel/mesentery: No small bowel obstruction. No free air or free fluid. Appendix is not visualized, a ppears to be surgically absent. Surgical anastomosis at the sigmoid colon. There are scattered small colonic diverticula without adjacent inflammatory changes to suggest diverticulitis. Calcific densiti es in the stomach, likely ingested material. Pelvic organs: Grossly unremarkable. Bladder: Excretion of IV contrast into the bladder. Moderate circumferential thickening of the bladd er wall, may be partly due to underdistention. Abdominal wall: Small fat containing umbilical hernia. Supraumbilical ventral hernia with a loop of t ransverse colon extending into the hernia sac without definite evidence of obstruction. Bones: No acute fracture or suspicious intraosseous lesion. IMPRESSION: 1. Moderate left hydronephrosis. There is contrast in the renal collecting systems and bladder from r ecent IV contrast administration, limiting evaluation for renal and ureteral calculi. Possible obstru cting calculus in the distal left ureter, with no contrast visualized in the most distal portion of t he left ureter at the time of imaging. There are nonobstructing right renal calculi visualized. 2. Bladder wall thickening may be due to underdistention. Correlate clinically to exclude cystitis. 3. Supraumbilical ventral hernia containing a loop of transverse colon without definite evidence of o bstruction. Correlate with clinical findings. 4. Small fat containing umbilical hernia. 5. Scattered colonic diverticula without adjacent inflammatory changes to suggest diverticulitis. 6. Additional findings as described above.
[2024-12-25] MEDS: SODIUM CHLORIDE 0.9% 1,000 ML IV ONE ×3 (10:14→20:40)
[2024-12-25] MEDS: KETOROLAC TROMETH 30 MG/ML 1ML VIAL IV ONE (10:14)
[2024-12-25] MEDS: TAMSULOSIN HYDROCHLORIDE 0.4 MG CAP PO ONE (11:21)
[2024-12-25 11:24] VITALS: PULSE 63; RESP 16; O2SAT 92
[2024-12-25] MEDS ORDERED: ACETAMINOPHEN 325 MG TAB PO PRN (13:45)
[2024-12-25] MEDS ORDERED: TAMSULOSIN HYDROCHLORIDE 0.4 MG CAP PO ONE (13:45)
[2024-12-25 14:46] LABS: Triglycerides 132.0 mg/dL (< 150)
[2024-12-25 14:47] LABS: Magnesium 1.8 mg/dL (1.6-2.6)
[2024-12-25 14:48] LABS: Cholesterol 107.0 mg/dL (< 200)
[2024-12-25 14:49] LABS: HDL Cholesterol 28.0 mg/dL (40-59)
--- NOTE | 2024-12-25 14:49 | DVH ---
CHEST RADIOGRAPH Indication: Abdominal pain Technique: Single frontal view of the chest was obtained COMPARISON: CHEST PORTABLE on DOS: 02/23/22, CXRP on DOS: 02/23/22, EKG on DOS: 02/23/22, EKG on DOS: FINDINGS: Lines and Tubes: Left chest pacemaker Lungs: Congestion Pleura: No effusion. No pneumothorax. Cardiomediastinal contours: Unremarkable Bones: Unremarkable IMPRESSION: Increased interstital prominence. This may represent pulmonary vascular congestion and/or viral pneum onia. Clinical correlation advised.
[2024-12-25 14:50] LABS: INR 1.2 (0.9-1.15); Partial Thromboplastin Time 29.5 SEC (24.5-34.5); Prothrombin Time 12.5 sec (9.3-11.8)
[2024-12-25 14:52] LABS: Lipase 33.0 U/L (12-53)
--- NOTE | 2024-12-25 15:39 | DVHINCON2 ---
Date of service: Dec 25, 2024 Referring Physician Hospitalist Reason for Consultation Left hydronephrosis History of Present Illness Patient was seen at [facility] yesterday were CT urogram was performed. He is admitted to [facility] for left lower quadrant abdominal pain. CT scan noncontrast study today shows collimation of the contrast on the left side to the distal UVJ region. Some of the contrast are seen in the renal pelvis demonstrating moderate hydronephrosis. Patient is not sure exact size of the stone. I will investigate by pulling records from [facility] and reviewing the data. In the meantime, patient is admitted for pain control and we will proceed with cystoscopy with left stent placement and ESWL tomorrow as inpatient. A 69 YEAR OLD MALE PRESENTS TO THE ED WITH COMPLAINT OF LLQ ABDOMINAL PAIN THAT RADIATES TO LEFT LOWER BACK. PATIENT STATES HE HAS BEEN EXPERIENCING LEFT LOWER QUADRANT ABDOMINAL PAIN THAT RADIATES TO HIS LEFT LOWER BACK FOR THE PAST TWO DAYS. PATIENT NOTES THAT HE WENT TO [facility] YESTERDAY WHERE A CT SCAN AND LABS WERE DONE WHICH REVEALED A LEFT RENAL STONE, BUT HE IS NOT SURE OF THE SIZE OF THE STONE. PATIENT DENIES DYSURIA, HEMATURIA, FEVER, CHILLS, SHORTNESS OF BREATH, CHEST PAIN, ABDOMINAL PAIN, NAUSEA, VOMITING, HEADACHE, OR OTHER COMPLAINTS. NO OTHER SYMPTOMS OR MODIFYING FACTORS AT THIS TIME. PATIENT IS ALERT, ORIENTED X 4, AND HAS STEADY GAIT. Chief Complaint: LEFT LOWERABD PAIN Primary Care Provider: UNKNOWN Reviewed Notes: Nurses Notes, Medications, Allergies Allergies: Coded Allergies: Penicillins (Verified Allergy, Unknown, 03/22/21) Morphine (Unverified Adverse Reaction, Intermediate, N/V, 07/30/21) Home Meds Active Scripts Potassium Citrate (Urocit-K 10) 1,080 Mg Tab, 1080 MG PO Q8HR for 30 Days, #90 TAB Prov:DEMETRI MANN MD 08/02/21 Tamsulosin Hcl (Flomax) 0.4 Mg Cap, 1 CAP PO DAILY, #30 CAP 0 Refills Prov:ASHWIN NI MD 04/19/21 Oxycodone W/ Acetaminophen (Percocet 5/325MG) 1 Tab Tb, 1 TAB PO BID for 10 Days, #20 TAB Prov:ASHWIN NI MD 04/19/21 Ciprofloxacin Hcl (Cipro) 500 Mg Tab, 500 MG PO DAILY for 7 Days, #7 TAB Prov:ASHWIN NI MD 04/19/21 Reported Medications Hydrocodone-Acetaminophen (Hydrocodone/Acetaminophen 10-325 mg) 1 Tab Tab, 1 TAB PO TID, TAB 07/30/21 Metronidazole (Flagyl) 500 Mg Tab, 500 MG PO, TAB 07/30/21 Docusate Sodium (Docusate Sodium) 100 Mg Tab, 100 MG PO BID PRN for FOR CONSTIPATION 03/22/21 Metoclopramide Hcl (Metoclopramide Hcl) 10 Mg Tab, 10 MG PO DAILY for GERD 03/22/21 Etodolac (Etodolac) 400 Mg Tab, 400 MG PO BID for ARTHRITIS 03/22/21 Aspirin (Aspir-Low) 81 Mg Tab, 81 MG PO DAILY for HEART ATTACK PREVENTION 03/22/21 Omeprazole (Omeprazole Dr) 20 Mg Cap, 20 MG PO QAM for GERD 03/22/21 Lactulose (Lactulose) 10 Gm/15 Ml Judy, 10 GM PO DAILY PRN for CONSTIPATION 03/22/21 Amitriptyline Hcl (Amitriptyline Hcl) 50 Mg Tab, 50 MG PO HS PRN for FOR INSOMNIA 03/22/21 Finasteride (Finasteride) 5 Mg Tab, 5 MG PO DAILY for ENLARGED PROSTATE 03/22/21 Cholecalciferol (Vitamin D3 1.25 mg (97834 Ut)) 1 Cap Cap, 1 CAP PO DAILY for SUPPLEMENT 03/22/21 Diphenhydramine Hcl (Diphenhydramine Hcl) 50 Mg Tab, 50 MG PO DAILY PRN for ALLERGIES 03/22/21 Atorvastatin Calcium (Lipitor) 80 Mg Tab, 1 TAB PO QPM for HIGH CHOLESTEROL 03/22/21 Metoprolol Tartrate (LOPRESSOR TABLET) 50 Mg Tb, 1 TAB PO TID for HYPERTENSION 03/22/21 Information Source: Patient Mode of Arrival: Ambulatory Timing: Days Duration: Since onset, Days Prehospital treatment: None Quality: Aching, Colicky Vomitus: None Stool: Normal Severity: Moderate Recent: None Recent Hx of: None Pain Location: LLQ Modifying Factors: Nothing Associated sign and symptoms: Nausea, Abdominal Pain Past Medical History High Lipids, Kidney Stones Past Surgical History Appendectomy, Pacemaker Right ESWL Left ureteral stent placement and removal Left ESWL (per Dr. Wharton) Allergies: Coded Allergies: Penicillins (Verified Allergy, Unknown, 03/22/21) Morphine (Unverified Adverse Reaction, Intermediate, N/V, 07/30/21) Home Meds Active Scripts Potassium Citrate (Urocit-K 10) 1,080 Mg Tab, 1080 MG PO Q8HR for 30 Days, #90 TAB Prov:DEMETRI MANN MD 08/02/21 Tamsulosin Hcl (Flomax) 0.4 Mg Cap, 1 CAP PO DAILY, #30 CAP 0 Refills Prov:ASHWIN NI MD 04/19/21 Oxycodone W/ Acetaminophen (Percocet 5/325MG) 1 Tab Tb, 1 TAB PO BID for 10 Days, #20 TAB Prov:ASHWIN NI MD 04/19/21 Ciprofloxacin Hcl (Cipro) 500 Mg Tab, 500 MG PO DAILY for 7 Days, #7 TAB Prov:ASHWIN NI MD 04/19/21 Reported Medications Hydrocodone-Acetaminophen (Hydrocodone/Acetaminophen 10-325 mg) 1 Tab Tab, 1 TAB PO TID, TAB 07/30/21 Metronidazole (Flagyl) 500 Mg Tab, 500 MG PO, TAB 07/30/21 Docusate Sodium (Docusate Sodium) 100 Mg Tab, 100 MG PO BID PRN for FOR CONSTIPATION 03/22/21 Metoclopramide Hcl (Metoclopramide Hcl) 10 Mg Tab, 10 MG PO DAILY for GERD 03/22/21 Etodolac (Etodolac) 400 Mg Tab, 400 MG PO BID for ARTHRITIS 03/22/21 Aspirin (Aspir-Low) 81 Mg Tab, 81 MG PO DAILY for HEART ATTACK PREVENTION 03/22/21 Omeprazole (Omeprazole Dr) 20 Mg Cap, 20 MG PO QAM for GERD 03/22/21 Lactulose (Lactulose) 10 Gm/15 Ml Judy, 10 GM PO DAILY PRN for CONSTIPATION 03/22/21 Amitriptyline Hcl (Amitriptyline Hcl) 50 Mg Tab, 50 MG PO HS PRN for FOR INSOMNIA 03/22/21 Finasteride (Finasteride) 5 Mg Tab, 5 MG PO DAILY for ENLARGED PROSTATE 03/22/21 Cholecalciferol (Vitamin D3 1.25 mg (81558 Ut)) 1 Cap Cap, 1 CAP PO DAILY for SUPPLEMENT 03/22/21 Diphenhydramine Hcl (Diphenhydramine Hcl) 50 Mg Tab, 50 MG PO DAILY PRN for ALLERGIES 03/22/21 Atorvastatin Calcium (Lipitor) 80 Mg Tab, 1 TAB PO QPM for HIGH CHOLESTEROL 03/22/21 Metoprolol Tartrate (LOPRESSOR TABLET) 50 Mg Tb, 1 TAB PO TID for HYPERTENSION 03/22/21 Current Medications Current Medications Medications (Trade) Dose Ordered Sig/Alok Route PRN Reason Start Time Stop Time Status Last Admin Acetaminophen (Tylenol Tablet) 650 mg Q6HP PRN PO PAIN SCALE 1-3 OR TEMP>100.4 12/25/24 13:45 UNV Ondansetron HCl (Zofran) 4 mg Q4HP PRN IV NAUSEA / VOMITING 12/25/24 13:45 UNV Morphine Sulfate 2 mg Q4HPRN PRN IV SEVERE PAIN (7-10 PAIN SCALE) 12/25/24 13:45 UNV Tamsulosin HCl (Flomax) 0.4 mg QPM PO 12/25/24 18:00 UNV Review of Systems Constitutional: denies: chills, diaphoresis, fatigue, fever, malaise, sweats, weakness, others EENTM: denies: blurred vision, double vision, ear bleeding, ear discharge, ear drainage, ear pain, ear ringing, eye pain, eye redness, hearing loss, mouth pain, mouth swelling, nasal discharge, nose bleeding, nose congestion, nose pain, photophobia, tearing, throat pain, throat swelling, voice changes, others Respiratory: denies: cough, hemoptysis, orthopnea, SOB at rest, shortness of breath, SOB with excertion, stridor, wheezing, others Cardiovascular: denies: chest pain, dizzy spells, diaphoresis, Dyspnea on exertion, edema, irregular heart beat, left arm pain, lightheadedness, palpitations, PND, syncope, others Gastrointestinal: reports: abdominal pain (LLQ ABDOMINAL PAIN); denies: abdomen distended, blood streaked bowels, constipated, diarrhea, dysphagia, difficulty swallowing, hematemesis, melena, nausea, poor appetite, poor fluid intake, rectal bleeding, rectal pain, vomiting, others Genitourinary: denies: burning, dysuria, flank pain, frequency, hematuria, incontinence, penile discharge, penile sore, pain, testicle pain, testicle swelling, urgency, others Neurological: denies: dizziness, fainting, headache, left sided numbness, left sided weakness, numbness, paresthesia, pre-existing deficit, right sided numbness, right sided weakness, seizure, speech problems, tingling, tremors, weakness, others Musculoskeletal: reports: back pain (LEFT LOWER BACK); denies: gout, joint pain, joint swelling, muscle pain, muscle stiffness, neck pain, others Integumetry: denies: bruises, change in color, change in hair/nails, dryness, laceration, lesions, lumps, rash, wounds, others Allergic/Immunocompromised: denies: Difficulty Healing, Frequent Infections, Hives, Itching, others Hematologic/Lymphatic: denies: anemia, blood clots, easy bleeding, easy bruising, swollen glands, others Endocrine: denies: excessive hunger, excessive sweating, excessive thirst, excessive urination, flushing, intolerance to cold, intolerance to heat, u nexplained weight gain, unexplained weight loss, others Psychiatric: denies: anxiety, bipolar disorder, depression, hopeless, panic disorder, schizophrenia, sleepless, suicidal, others All Other Systems: Reviewed and Negative Vital Signs Vital Signs Date Time Temp Pulse Resp B/P (MAP) Pulse Ox O2 Delivery O2 Flow Rate FiO2 12/25/24 13:39 97.5 60 20 118/66 (83) 6 97.5 12/25/24 11:24 Room Air* 0 21 Physical Exam General Appearance: No Apparent Distress, Normal HEENT: Normal ENT Inspection, PERRL/EOMI, Pharynx Normal, TMs Normal Neck: Full Range of Motion, Non-Tender, Normal, Normal Inspection Respiratory: Chest Non-Tender, Lungs Clear, No Accessory Muscle Use, No Respiratory Distress, Normal Breath Sounds Cardiovascular: No Edema, No JVD, No Murmur, No Gallop, Normal Peripheral Pulses, Regular Rate/Rhythm Breast Exam: Deferred Gastrointestinal: LLQ, No Organomegaly, No Pulsatile Mass, Normal Bowel Sounds, Soft, Tenderness (ON LEFT LOWER ABD TO LEFT LOWER BACK, NO GUARDING AND REBOUND TENDERNESS. 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, No Motor Deficits, Normal Affect, Normal Mood, No Sensory Deficits Cerebellar Function: Normal Reflexes: Normal Skin: Dry, Normal Color, Warm Peripheral Pulses: 2+ carotid (R), 2+ carotid (L), 2+ dorsalis pedis (R), 2+ dorsalis pedis (L) Lymphatic: No Adenopathy Labs/Diagnostic Data Labs Test 12/25/24 14:17 12/25/24 08:28 12/25/24 08:12 Range/Units Prothrombin Time 12.5 H 9.3-11.8 sec Prothrombin Time INR 1.20 H 0.9-1.15 Activated Partial Thromboplast Time 29.5 24.5-34.5 SEC Hemoglobin A1c 5.9 H <5.7 % A1C Lactic Acid Level 0.8 0.4-2.0 mmol/L Phosphorus Level 3.4 2.4-5.1 mg/dL Magnesium Level 1.8 1.6-2.6 mg/dL Triglycerides Level 132 < 150 mg/dL Cholesterol Level 107 < 200 mg/dL LDL Cholesterol 62 < 100 mg/dL HDL Cholesterol 28 L 40-59 mg/dL Lipase 33 12-53 U/L Vitamin B12 Level 494 211-911 pg/mL Vitamin D 25-Hydroxy 29.1 L 30.0-100 ng/mL White Blood Count 4.6 4.4-10.8 10^3/uL Red Blood Count 4.05 L 4.5-5.90 10^6/uL Hemoglobin 12.9 L 13.5-17.5 g/dL Hematocrit 37.7 L 41.0-53.0 % Mean Corpuscular Volume 92.9 80.0-100.0 fL Mean Corpuscular Hemoglobin 31.8 28.0-32.0 pg Mean Corpuscular Hemoglobin Concent 34.2 32.0-36.0 g/dL Red Cell Distribution Width 15.8 H 11.8-14.3 % Platelet Count 273 140-450 10^3/uL Mean Platelet Volume 7.7 6.9-10.8 fL Neutrophils (%) (Auto) 61.4 37.0-80.0 % Lymphocytes (%) (Auto) 26.7 10.0-50.0 % Monocytes (%) (Auto) 7.7 0.0-12.0 % Eosinophils (%) (Auto) 3.5 0.0-7.0 % Basophils (%) (Auto) 0.7 0.0-2.0 % Neutrophils # (Auto) 2.8 1.6-8.6 10 ^3/uL Lymphocytes # (Auto) 1.2 0.4-5.4 10 ^3/uL Monocytes # (Auto) 0.4 0-1.3 10 ^3/uL Eosinophils # (Auto) 0.2 0-0.8 10 ^3/uL Basophils # (Auto) 0 0-0.2 10 ^3/uL Nucleated Red Blood Cells 0.1 % Sodium Level 139 136-145 mmol/L Potassium Level 3.8 3.5-5.1 mmol/L Chloride Level 104 98-107 mmol/L Carbon Dioxide Level 25 20-31 mmol/L Anion Gap 10 5-15 Blood Urea Nitrogen 11 9-23 mg/dL Creatinine 1.21 0.700-1.30 mg/dL Glomerular Filtration Rate Calc 65 >90 mL/min BUN/Creatinine Ratio 9.1 L 10.0-20.0 Serum Glucose 113 H 74-106 mg/dL Calcium Level 9.6 8.7-10.4 mg/dL Urine Color Yellow Yellow Urine Clarity Turbid H Clear Urine pH 5.5 5.0-9.0 Urine Specific [place] 1.036 H 1.001-1.035 Urine Protein 1+ H Negative Urine Ketones Negative Negative Urine Blood 3+ H Negative /uL Urine Nitrite Negative Negative Urine Bilirubin Negative Negative Urine Urobilinogen Normal Negative mg/dL Urine Leukocyte Esterase Negative Negative /uL Urine RBC 392 0 - 3 /hpf Urine Microscopic WBC 6 H 0-3 /HPF Urine Squamous Epithelial Cells None seen <5 /hpf Urine Bacteria None seen None Seen /hpf Urine Mucus Few None Seen Urine Glucose Normal Normal mg/dL PATIENT: SKYLER CEE ACCT: [id number] UNIT: [id number] : 1955 LOC: ER ROOM / BED: / AGE / SEX: 69 / M ADM STATUS: REG ER SERVICE [id number] ORDERING PHYSICIAN: GRICELDA QUAN PROCEDURE(s): ABPL - CT AB PEL WO CON-NO ORAL OR IV REASON: left lower abd pain to left lower back ORDER NUMBER(s): [id number], ACCESSION NUMBER(s): [id number] CLINICAL INFORMATION: Left lower abdominal pain radiating to the left lower back. TECHNIQUE: Axial CT images of the abdomen and pelvis were obtained without IV contrast. Coronal and sagittal reformatted images were obtained, reviewed, and stored. Evaluation of the parenchymal organs is limited without IV contrast. Evaluation of the bowel and mesentery is limited without oral contrast. All CT scans at this medical facility are performed using dose modulation techniques as appropriate to a performed exam including the following: Automated exposure control was utilized; adjustment of the MA and/or KV according to patient size; and use of iterative reconstruction technique. CTDIvol = 18.42 mGy DLP = 1126.04 mGy-cm COMPARISON: CT CT AB PEL WO CON-NO ORAL OR IV on DOS: 12/22/23, [facility]IDC on DOS: 02/23/22, CT ABD PELVIS WO CONTRAST on DOS: 04/19/21 FINDINGS: Lung bases: Dependent atelectasis in the lower lobes. Liver: Grossly unremarkable in its noncontrast enhanced appearance. No abnormal density or focal lesion identified. Biliary: Increased density in the gallbladder, possible sludge or vicarious excretion of contrast. No biliary ductal dilatation. Spleen: Unremarkable. Pancreas: Moderate fatty changes in the pancreas. Adrenal glands: Unremarkable. No mass. Kidneys: There is contrast visualized in the renal collecting systems and bladder, from recent IV contrast administration. Moderate left hydronephrosis. Can not exclude obstructing calculus in the distal left ureter, although difficult to delineate due to contrast in the left ureter. No contrast visualized in the most distal aspect of the left ureter at the time of imaging. Multiple nonobstructing right renal calculi are seen. Limited evaluation for left renal calculi due to contrast in the left renal collecting system. Aorta/Vascular: Scattered atherosclerotic calcification. No abdominal aortic aneurysm. Retroperitoneum: No mass or lymphadenopathy. Bowel/mesentery: No small bowel obstruction. No free air or free fluid. Appendix is not visualized, appears to be surgically absent. Surgical anastomosis at the sigmoid colon. There are scattered small colonic diverticula without adjacent inflammatory changes to suggest diverticulitis. Calcific densities in the stomach, likely ingested material. Pelvic organs: Grossly unremarkable. Bladder: Excretion of IV contrast into the bladder. Moderate circumferential thickening of the bladder wall, may be partly due to underdistention. Abdominal wall: Small fat containing umbilical hernia. Supraumbilical ventral hernia with a loop of transverse colon extending into the hernia sac without definite evidence of obstruction. Bones: No acute fracture or suspicious intraosseous lesion. IMPRESSION: 1. Moderate left hydronephrosis. There is contrast in the renal collecting systems and bladder from recent IV contrast administration, limiting evaluation for renal and ureteral calculi. Possible obstructing calculus in the distal left ureter, with no contrast visualized in the most distal portion of the left ureter at the time of imaging. There are nonobstructing right renal calculi visualized. 2. Bladder wall thickening may be due to underdistention. Correlate clinically to exclude cystitis. 3. Supraumbilical ventral hernia containing a loop of transverse colon without definite evidence of obstruction. Correlate with clinical findings. 4. Small fat containing umbilical hernia. 5. Scattered colonic diverticula without adjacent inflammatory changes to suggest diverticulitis. 6. Additional findings as described above. ATED BY: JUAN MIGUEL WOODS DO DICTATED DATE/TIME: 12/25/24917 SIGNED BY: JUAN MIGUEL WOODS DO SIGNED DATE/TIME: 12/25/24917 CC: Assessment Presumed left distal ureteral calculus Left hydronephrosis Left abdominal pain Right renal stone Plan/Recommendation Hold aspirin use Cystoscopy with left ureteral stent placement and possible lithotripsy.of left distal ureteral and right renal stones Plan discussed with: Patient, Other DEMETRI MANN MD Dec 25, 2024 15:39
[2024-12-25] MEDS ORDERED: MANNITOL FTV 25% 12.5 GM/50 ML 50 ML IV ONE (16:45)
--- NOTE | 2024-12-25 17:09 | DVH ---
Indication: Urolithiasis Technique: XY KUB ABDOMEN SINGLE VIEWXY Comparison: None FINDINGS/IMPRESSION: Large volume stool in the colon. Calculi projecting over the right kidney measuring 7 mm, 3 mm, 7 mm. No evidence for free intraperitoneal air. Postsurgical changes left pelvis
[2024-12-25] MEDS ORDERED: AMITRIPTYLINE HCL 25 MG TAB PO PRN ×2 (19:15)
[2024-12-25 20:07] VITALS: PULSE 63; RESP 20; O2SAT 95
[2024-12-25] MEDS: MANNITOL FTV 25% 12.5 GM/50 ML 50 ML IV ONE (20:40)
--- NOTE | 2024-12-25 20:43 | DVHHP2 ---
History of Present Illness History of Present Illness This is a 69-year-old male with past medical history of CHF, permanent pacemaker-2019 ([facility]), hypertension, hyperlipidemia, type 2 diabetes mellitus, depression, vitamin-D deficiency, insomnia came to ER today with a complaint of left flank pain which started 2 days earlier and getting worse which is 10/10 intensity, on and off, sharp in nature, radiates to lower abdomen. Patient denies any hematuria or dysuria. Similar symptoms 3 months back, Patient visited [facility] 3 months ago and lithotripsy done. Patient stated he passed 2-3 stone in urine after lithotripsy procedure. Angiogram done 2022 and 1 stent placed. Currently denies any fever, chest pain, cough, headache, or any other acute distress. PAST MEDICAL HISTORY: High Lipids, Kidney Stones Surgical History: Appendectomy, Pacemaker Family History: noncontributory Social History: Smoker: Non-Smoker Alcohol: Denies ETOH Use Drugs: Denies Drug Use Lives In: Home Review of Systems Constitutional: Yes: Malaise; No: Fever, Chills, Sweats, Weakness, Other Eyes: No: Pain, Vision change, Conjunctivae inflammation, Eyelid inflammation, Other, Redness ENT: No: Ear pain, Ear discharge, Nose pain, Nose discharge, Nose congestion, Mouth pain, Mouth swelling, Throat pain, Throat swelling, Other Respiratory: No: Cough, Dry, Shortness of breath, SOB with excertion, Wheezing, Hemoptysis, Pleuritic Pain, Sputum, Wheezing, Other Cardiovascular: No: Chest Pain, Palpitations, Orthopnea, Paroxysmal Noc. Dyspnea, Edema, Lt Headedness, Other Gastrointestinal: Nausea, Abdominal Pain; No: Vomiting, Diarrhea, Constipation, Melena, Hematochezia, Other Genitourinary: No Dysuria, No Frequency, No Incontinence, No Hematuria, No Retention, No Other Musculoskeletal: No: other, neck pain, shoulder pain, arm pain, back pain, hand pain, leg pain, foot pain Skin: No: Rash, Lesions, Jaundice, Bruising, Other Neurological: No: Weakness, Numbness, Incoordination, Change in speech, Confusion, Seizures, Other Allergies: Coded Allergies: Penicillins (Verified Allergy, Unknown, 03/22/21) Morphine (Unverified Adverse Reaction, Intermediate, N/V, 07/30/21) Medications Current Medications Medications Dose Ordered Sig/Alok Route Start Time Stop Time Status Last Admin Dose Admin Acetaminophen 650 mg Q6HP PRN PO 12/25/24 13:45 Ondansetron HCl 4 mg Q4HP PRN IV 12/25/24 13:45 Morphine Sulfate 2 mg Q4HPRN PRN IV 12/25/24 13:45 UNV Tamsulosin HCl 0.4 mg QPM PO 12/26/24 18:00 Aspirin 81 mg DAILY PO 12/26/24 10:00 Finasteride 5 mg DAILY PO 12/26/24 10:00 Atorvastatin Calcium 80 mg HS PO 12/25/24 22:00 Diphenhydramine HCl 50 mg DAILY PRN PO 12/25/24 19:15 Lactulose 15 ml DAILY PRN PO 12/26/24 10:00 Patient Own Medication 20 mg QAM PO 12/26/24 07:00 Insulin Human Lispro AC SC 12/25/24 17:00 Metoprolol Tartrate 100 mg BID PO 12/25/24 22:00 Amitriptyline HCl 50 mg HS PRN PO 12/25/24 19:15 Exam Vital Signs Vital Signs Date Time Temp Pulse Resp B/P (MAP) Pulse Ox O2 Delivery O2 Flow Rate FiO2 12/25/24 18:43 62 16 122/83 (96) 94 12/25/24 13:39 97.5 97.5 12/25/24 11:24 Room Air* 0 21 General Appearance: Alert, Oriented X3, Cooperative, mild distress HEENT: Atraumatic, PERRLA, EOMI Respiratory: Clear to auscultation, Normal air movement Cardiovascular: Regular rate, Normal S1, Normal S2, No murmurs Abdominal: Soft, No tenderness, Other (Left costovertebral angle tender on deep palpation) Extremities: No clubbing, No cyanosis, No edema, Normal pulses, No tenderness/swelling Skin: No breakdown, No significant lesion Neuro: Normal speech, Strength at 5/5 X4 ext Labs/Xrays Labs Test 12/25/24 14:17 12/25/24 08:28 12/25/24 08:12 Range/Units Prothrombin Time 12.5 H 9.3-11.8 sec Prothrombin Time INR 1.20 H 0.9-1.15 Activated Partial Thromboplast Time 29.5 24.5-34.5 SEC Hemoglobin A1c 5.9 H <5.7 % A1C Lactic Acid Level 0.8 0.4-2.0 mmol/L Phosphorus Level 3.4 2.4-5.1 mg/dL Magnesium Level 1.8 1.6-2.6 mg/dL Triglycerides Level 132 < 150 mg/dL Cholesterol Level 107 < 200 mg/dL LDL Cholesterol 62 < 100 mg/dL HDL Cholesterol 28 L 40-59 mg/dL Lipase 33 12-53 U/L Vitamin B12 Level 494 211-911 pg/mL Vitamin D 25-Hydroxy 29.1 L 30.0-100 ng/mL Thyroid Stimulating Hormone (TSH) 2.65 0.55-4.78 uIU/mL White Blood Count 4.6 4.4-10.8 10^3/uL Red Blood Count 4.05 L 4.5-5.90 10^6/uL Hemoglobin 12.9 L 13.5-17.5 g/dL Hematocrit 37.7 L 41.0-53.0 % Mean Corpuscular Volume 92.9 80.0-100.0 fL Mean Corpuscular Hemoglobin 31.8 28.0-32.0 pg Mean Corpuscular Hemoglobin Concent 34.2 32.0-36.0 g/dL Red Cell Distribution Width 15.8 H 11.8-14.3 % Platelet Count 273 140-450 10^3/uL Mean Platelet Volume 7.7 6.9-10.8 fL Neutrophils (%) (Auto) 61.4 37.0-80.0 % Lymphocytes (%) (Auto) 26.7 10.0-50.0 % Monocytes (%) (Auto) 7.7 0.0-12.0 % Eosinophils (%) (Auto) 3.5 0.0-7.0 % Basophils (%) (Auto) 0.7 0.0-2.0 % Neutrophils # (Auto) 2.8 1.6-8.6 10 ^3/uL Lymphocytes # (Auto) 1.2 0.4-5.4 10 ^3/uL Monocytes # (Auto) 0.4 0-1.3 10 ^3/uL Eosinophils # (Auto) 0.2 0-0.8 10 ^3/uL Basophils # (Auto) 0 0-0.2 10 ^3/uL Nucleated Red Blood Cells 0.1 % Sodium Level 139 136-145 mmol/L Potassium Level 3.8 3.5-5.1 mmol/L Chloride Level 104 98-107 mmol/L Carbon Dioxide Level 25 20-31 mmol/L Anion Gap 10 5-15 Blood Urea Nitrogen 11 9-23 mg/dL Creatinine 1.21 0.700-1.30 mg/dL Glomerular Filtration Rate Calc 65 >90 mL/min BUN/Creatinine Ratio 9.1 L 10.0-20.0 Serum Glucose 113 H 74-106 mg/dL Calcium Level 9.6 8.7-10.4 mg/dL Urine Color Yellow Yellow Urine Clarity Turbid H Clear Urine pH 5.5 5.0-9.0 Urine Specific [place] 1.036 H 1.001-1.035 Urine Protein 1+ H Negative Urine Ketones Negative Negative Urine Blood 3+ H Negative /uL Urine Nitrite Negative Negative Urine Bilirubin Negative Negative Urine Urobilinogen Normal Negative mg/dL Urine Leukocyte Esterase Negative Negative /uL Urine RBC 392 0 - 3 /hpf Urine Microscopic WBC 6 H 0-3 /HPF Urine Squamous Epithelial Cells None seen <5 /hpf Urine Bacteria None seen None Seen /hpf Urine Mucus Few None Seen Urine Glucose Normal Normal mg/dL SEPSIS Sepsis Screen Date sepsis recognized/suspect: Dec 25, 2024 Time Sepsis recognized/suspect: 075 Recent Procedure: No On Antibiotic Therapy: No Respiratory Rate >20: No Heart Rate >90: No Temp<36 C (96.8 F) or >38.3 C: No SBP <90 or MAP <65 mmHG: No New Acute Mental Status Change: No Is the patient on CPAP, BIPAP,: No Physician Orders Admit (12/25/24 13:41) Code Status (12/25/24 13:41) Vital Signs .PER UNIT PROTOCOL (12/25/24 13:41) Review Orders With Adm.Md (12/25/24 13:41) Acetaminophen Tablet (Tylenol Tablet) (12/25/24 13:45) Notify Md Of Changes From Base (12/25/24 13:41) Advance Directive (12/25/24 13:41) Patient Condition (12/25/24 13:41) Allergies (12/25/24 13:41) Ondansetron Hcl (Zofran) (12/25/24 13:45) Morphine Sulfate Injection (12/25/24 13:45) Oxygen By Nasal Cannula (12/25/24 13:41) Stat Ekg For Chest Pain (12/25/24 13:41) Notify Of Changes From Base (12/25/24 13:41) Purchasing Administrative Assistant For 24 Hours (12/25/24 13:41) Emergency Dysrhythmia Protocol (12/25/24 13:41) Rhythm Strips Once Every Shift (12/25/24 13:41) Drug Screen (12/25/24 13:41) * Urology Consult (12/25/24 13:41) Electrocardigram (12/25/24 13:41) Chest Xray 1 View (12/25/24 13:45) Blood Culture (12/25/24 13:46) Urine Bacterial Culture (12/25/24 13:46) Obtain Consent For: (12/25/24 15:30) Obtain Consent For Anesthesia (12/25/24 15:30) Npo (Nothing By Mouth) Diet (12/26/24 Breakfast) Aspirin Enteric Coated Tablet (Ecotrin E (12/26/24 10:00) Finasteride Tablet (Proscar Tablet) (12/26/24 10:00) Atorvastatin (Lipitor) (12/25/24 22:00) Diphenhdramine Capsule (Benadryl Capsule (12/25/24 19:15) (Nf) Omeprazole (Omeprazole Dr) (12/26/24 07:00) Insulin Lispro (Human) (Humalog) (12/25/24 17:00) Metoprolol Tartrate Tablet (Lopressor Ta (12/25/24 22:00) Kub Abdomen Single View (12/25/24 16:34) Tamsulosin Hydrochloride (Flomax) (12/26/24 18:00) Amitriptyline Hcl Tablet (Elavil Tablet) (12/25/24 19:15) Lactulose Oral (12/26/24 10:00) Mannitol Ftv 25% 12.5 Gm/50 Ml (12/25/24 20:30) Sodium Chloride 0.9% (12/25/24 20:30) Vital Signs Date Time Temp Pulse Resp B/P (MAP) Pulse Ox O2 Delivery O2 Flow Rate FiO2 12/25/24 18:43 62 16 122/83 (96) 94 12/25/24 13:39 97.5 60 20 118/66 (83) 6 97.5 Laboratory Tests Test 12/25/24 14:17 Lactic Acid Level 0.8 mmol/L (0.4-2.0) Medications Medications Dose Ordered Sig/Alok Route Start Time Stop Time Status Last Admin Dose Admin Tamsulosin HCl 0.8 mg ONCE ONCE PO 12/25/24 11:00 12/25/24 11:01 DC 12/25/24 11:21 0.8 MG Assessment/Plan Assessment/Plan Acute pyelonephritis with right-sided nephrolithiasis Possible left distal ureteral calculus Left hydronephrosis CT abdomen and pelvis shows left renal calculus and right ureteric calculi Urology consulted Hold aspirin for today and cystoscopy with left ureteral stent placement and po ssible lithotripsy.of left distal ureteral and right renal stones NPO midnight UA shows nitrate and leukocyte esterase negative and no bacteria No indication of antibiotic at this time Encouraged oral fluid intake Acute on chronic diastolic heart failure Echo in 2021-decompression 60-70% History of sick sinus syndrome, status post pacemaker implant Metoprolol Aspirin Nitroglycerin 0.4 mg sublingually as needed Type 2 diabetes mellitus Home medication metformin Sliding scale Monitor blood sugar BPH Tamsulosin and finasteride Dyslipidemia Atorvastatin Medication: fenofibrate Diverticulosis CT abdomen and pelvis shows diverticulosis Umbilical hernia Outpatient follow-up GERD OMEPRAZOLE Depression Amitriptyline Insomnia Diphenhydramine 50 mg as needed OBESITY, BMI 33.1 Lifestyle modification Goals of care discussions. More than 23 minute spent with patient. Full code status. Case discussed with Dr. Thomas Plan discussed with: Patient, Other (Nurse) My Orders Orders - KATHY GOMEZ RESIDENT Procedure Category Date Status Time Aspirin Enteric PHA 12/26/24 In Process Coated Tablet 10:00 Finasteride Tablet PHA 12/26/24 In Process (Proscar Tablet) 10:00 Atorvastatin (Lipitor) PHA 12/25/24 In Process 22:00 Diphenhdramine PHA 12/25/24 In Process Capsule (Benadryl 19:15 (Nf) Omeprazole PHA 12/26/24 In Process (Omeprazole Dr) 07:00 Insulin Lispro PHA 12/25/24 In Process (Human) (Humalog) 17:00 Metoprolol Tartrate PHA 12/25/24 In Process Tablet (Lopressor Ta 22:00 Amitriptyline Hcl PHA 12/25/24 In Process Tablet (Elavil Tablet) 19:15 Lactulose Oral PHA 12/26/24 In Process 10:00 Date of Service: Dec 25, 2024 Billing Provider: JONATAN THOMAS MD Common Visit Codes: [id number] INP/OBS CARE (HIGH) Secondary Visit Codes: [id number]-[id number] CARE PLAN 30 MINUTES KATHY GOMEZ RESIDENT Dec 25, 2024 20:42
[2024-12-25 21:00] VITALS: BP 119/65; PULSE 63; RESP 20; TEMP 97.5; O2SAT 94
[2024-12-25] MEDS: INSULIN LISPRO (HUMAN) 100 UNITS/ML ML SC SCH (21:24)
[2024-12-25 21:58] LABS: Amphetamine Screen, Urine Neg (NEGATIVE); Barbiturate Scree,Urine Neg (NEGATIVE); Benzodiazephine Screen, Urine Neg (NEGATIVE); Cannabinoid Screen, Urine Neg (NEGATIVE); Cocaine Screen, Urine Neg (NEGATIVE); Opiate Scree,Urine Pos (NEGATIVE); Phencyclidine Screen, Urine Neg (NEGATIVE)
[2024-12-25] MEDS: METOPROLOL TARTRATE 50 MG TAB PO SCH (22:00)
[2024-12-25] MEDS: ATORVASTATIN 20 MG TAB PO SCH (22:26)
[2024-12-26] VITALS (7 sets, daily range): BP systolic 115–141; BP diastolic 51–75; PULSE 69–96; RESP 17–22; TEMP 97.5–98.3; O2SAT 91–97
[2024-12-26] MEDS: OMEPRAZOLE 20 MG PO SCH (06:14)
[2024-12-26] MEDS: ONDANSETRON HCL 4 MG/2 ML VIAL IV PRN (06:14)
[2024-12-26 07:09] LABS: Anion Gap 11 (5-15); Calcium 9.2 mg/dL (8.7-10.4); Carbon Dioxide 26 mmol/L (20-31); Chloride 104 mmol/L (98-107); Potassium 3.5 mmol/L (3.5-5.1); Sodium 141 mmol/L (136-145)
[2024-12-26 07:15] LABS: BUN/Creatinine Ratio 9.5 (10.0-20.0); Blood Urea Nitrogen 10 mg/dL (9-23); Glucose 84 mg/dL (74-106)
[2024-12-26 07:17] LABS: Hematocrit 35.9 % (41.0-53.0); Hemoglobin 12.6 g/dL (13.5-17.5); Mean Corpuscular Hemoglobin 32.3 pg (28.0-32.0); Mean Corpuscular Volume 92.3 fL (80.0-100.0); Nucleated Red Blood Cells % 0.1 %
[2024-12-26] MEDS: FINASTERIDE 5 MG TAB PO SCH (09:49)
[2024-12-26] MEDS ORDERED: LACTULOSE 20Gm/30ML SOLN PO PRN (10:00)
[2024-12-26] MEDS ORDERED: ASPirin-EC 81 mg tab PO SCH (10:00)
[2024-12-26] MEDS ORDERED: KETOROLAC TROMETH 30 MG/ML 1ML VIAL ONE (14:42)
[2024-12-26] MEDS ORDERED: LIDOCAINE 2% (LOCAL ANESTH.) PF 5ml SDV ONE (14:42)
[2024-12-26] MEDS ORDERED: PROPOFOL 10 MG/ML 20 ML IV ONE (14:42)
[2024-12-26] MEDS ORDERED: ONDANSETRON HCL 4 MG/2 ML VIAL ONE (14:42)
[2024-12-26] MEDS ORDERED: GLYCOPYRROLATE 0.2 MG/ML 1ML VIAL ONE (14:42)
[2024-12-26] MEDS ORDERED: KETAMINE 50mg/ML 1ml syringe ONE (14:42)
[2024-12-26] MEDS: CIPROFLOXACIN 400MG/200ML 200 ML IV ONE (14:48)
[2024-12-26] MEDS: IOHEXOL 300 MG/ML 100ML BOTTLE IJ ONE (15:55)
--- NOTE | 2024-12-26 16:51 | DVHNC2 ---
Procedure - OPERATIVE REPORT Pre-op. Diagnosis: Ureteral Stone - LEFT, distal 5, 6 and 7 mm Hydronephrosis - LEFT Flank Pain - LEFT Right renal stones, 6-7 mm Post-op. Diagnosis: Same as pre-op diagnosis Operation: Extracorporeal Shockwave Lithotripsy - LEFT distal ureteral Extracorporeal Shockwave Lithotripsy - right renal stones Cystoscopy, Ureteral stent placement - LEFT Anesthesia: General Indications: Informed Consent: Options were discussed. Treatments can include conservative therapy, Extra-corporeal shockwave therapy (ESWL), Ureteroscopy with laser lithotripsy vs extraction, PCNL (percutaneous nephrolithotomy); with or without the use of Stents or retrograde pyelography. Corresponding advantages and disadvantages were also discussed. Questions were addressed. Patient wishes to proceed with left ESWL and possible cystoscopy with left ureteral stent placement. Risks and benefits of the surgery were reviewed with patient which include but are not limited to infection, bleeding, urosepsis, renal hemorrhage/hematoma formation, ureteral perforation, ureteral stricture formation, need for further surgery if stone does not break, ureteral obstruction from stone fragments, cardiac arrthymia and risks of anesthesia. Despite these risks, patient wishes to proceed with the surgery. Patient fully understood and signed the consent. Details of Procedure: Under satisfactory anesthesia, the patient was positioned on the lithotripsy table in the lithotomy position. Area of the genitalia was prepped and draped in usual sterile manner. Twenty-two Serbian rigid cystoscope was used to inspect the urethra in the bladder. The left ureteric orifice was cannulated with six Serbian open-ended catheter and retrograde pyelogram was performed. This demonstrated multiple filling defects in the distal ureteral segment measuring five, six, and 7 mm stones. Guidewire was then inserted and accessed into the renal pelvis. Open-ended catheter was then removed and a five Serbian by 26 cm polaris loop ureteral stent was placed. Cystoscope was removed along with multiple bladder stones found that extruded from the left ureter with stent placement. Beavers catheter was inserted. Patient was positioned on the lithotripsy table to place the left distal ureteral calculi onto the F2 focus. Three thousand shocks were delivered at level 7-9 to treat the left distal ureteral calculi. Once the left distal ureteral calculi were treated, patient was repositioned so that the right lower pole renal stones are placed onto the F2 focus. The stones were treated with 2400 shock waves for fragmentation. Patient tolerated the procedure well. He was awakened and taken to recovery room in stable condition Specimens: None Complications: None Findings: Stone Laterality: Left distal ureteral stones, 5-7 mm and right lower pole renal stones, 6-7 mm Shocks Delivered: 3000 / 2400 Max Power settin /6 Fragmentation Quality: Well Ureteral stent size & length: [address] left ureteral stent Notes: Cystoscopy with stent removal in 2-4 weeks DEMETRI MANN MD Dec 26, 2024 16:51
[2024-12-26] MEDS ORDERED: SODIUM CHLORIDE LOCK 20 ML ONE (16:52)
[2024-12-26] MEDS ORDERED: fentaNYL CITRATE 100 MCG/2 ML VL ONE (17:18)
[2024-12-26] MEDS: TAMSULOSIN HYDROCHLORIDE 0.4 MG CAP PO SCH (18:00)
--- NOTE | 2024-12-26 19:20 | DVHPNRES ---
Progress Note Date Seen: Dec 26, 2024 Resident Creating Document: KATHY GOMEZ RESIDENT Medical Necessity Reason Pt with a Central, PICC or Fol: No Subjective Review of Systems This is a 69-year-old male with past medical history of CHF, permanent pacemaker-2019 ([facility]), hypertension, hyperlipidemia, type 2 diabetes mellitus, depression, vitamin-D deficiency, insomnia came to ER today with a complaint of left flank pain which started 2 days earlier and getting worse which is 10/10 intensity, on and off, sharp in nature, radiates to lower abdomen. Patient denies any hematuria or dysuria. Similar symptoms 3 months back, Patient visited [facility] 3 months ago and lithotripsy done. Patient stated he passed 2-3 stone in urine after lithotripsy procedure. Angiogram done 2022 and 1 stent placed. Currently denies any fever, chest pain, cough, headache, or any other acute distress. PAST MEDICAL HISTORY: High Lipids, Kidney Stones Surgical History: Appendectomy, Pacemaker Family History: noncontributory Social History: Smoker: Non-Smoker Alcohol: Denies ETOH Use Drugs: Denies Drug Use Lives In: Home Patient seen and evaluated in bedside. Not in acute distress. Consult appreciated. No acute event overnight. Objective vital signs Vital Sign Date Time Temp Pulse Resp B/P (MAP) Pulse Ox O2 Delivery O2 Flow Rate FiO2 12/26/24 18:47 97.7 82 13 125/57 (79) 94 97.7 12/26/24 18:30 Nasal Cannula 2.0 96 Total Intake and Output 12/25/24 12/25/24 12/26/24 15:00 23:00 07:00 Intake Total 1000 ml 1050 ml 0 ml Output Total 1000 ml Balance 1000 ml 1050 ml -1000 ml medications Current Medications Medications Dose Ordered Sig/Alok Route Start Time Stop Time Status Last Admin Dose Admin Acetaminophen 650 mg Q6HP PRN PO 12/25/24 13:45 Ondansetron HCl 4 mg Q4HP PRN IV 12/25/24 13:45 12/26/24 06:14 4 MG Morphine Sulfate 2 mg Q4HPRN PRN IV 12/25/24 13:45 Tamsulosin HCl 0.4 mg QPM PO 12/26/24 18:00 Finasteride 5 mg DAILY PO 12/26/24 10:00 Atorvastatin Calcium 80 mg HS PO 12/25/24 22:00 12/25/24 22:26 80 MG Diphenhydramine HCl 50 mg DAILY PRN PO 12/25/24 19:15 Lactulose 15 ml DAILY PRN PO 12/26/24 10:00 Patient Own Medication 20 mg QAM PO 12/26/24 07:00 12/26/24 06:14 20 MG Insulin Human Lispro AC SC 12/25/24 17:00 Metoprolol Tartrate 100 mg BID PO 12/25/24 22:00 Amitriptyline HCl 50 mg HS PRN PO 12/25/24 19:15 Examination General Appearance: Alert, Oriented X3, Cooperative, mild distress HEENT: Atraumatic, PERRLA, EOMI Respiratory: Clear to auscultation, Normal air movement Cardiovascular: Regular rate, Normal S1, Normal S2, No murmurs Abdominal: Soft, No tenderness, Other (Left costovertebral angle tender on deep palpation) Extremities: No clubbing, No cyanosis, No edema, Normal pulses, No tenderness/swelling Skin: No breakdown, No significant lesion Neuro: Normal speech, Strength at 5/5 X4 ext laboratory and microbiology Laboratory Tests 12/26/24 05:35 Test 12/26/24 05:35 Range/Units Serum Glucose 84 74-106 mg/dL Microbiology Date/Time Source Procedure Growth Status 12/25/24 20:55 Voided Urine Urine Culture - Preliminary Resulted 12/25/24 14:16 Blood Blood Culture - Preliminary NO GROWTH AFTER 24 HOURS OF INCUBATION. Resulted Problem List/Assessment/Plan Problem List/Assessment/Plan Acute pyelonephritis with right-sided nephrolithiasis Possible left distal ureteral calculus Left hydronephrosis CT abdomen and pelvis shows left renal calculus and right ureteric calculi Hold aspirin for today and cystoscopy with left ureteral stent placement and possible lithotripsy.of left distal ureteral and right renal stones X-ray abdomen shows: Calculi projecting over the right kidney measuring 7 mm, 3 mm, 7 mm. No evidence for free intraperitoneal air. UA shows nitrate and leukocyte esterase negative and no bacteria No indication of antibiotic at this time Encouraged oral fluid intake Urologycal procedure (12/26/2024): Extracorporeal Shockwave Lithotripsy - LEFT distal ureteral Extracorporeal Shockwave Lithotripsy - right renal stones Cystoscopy, Ureteral stent placement - LEFT. Follow-up with urology 1-2 weeks after discharge from hospital. Chronic diastolic heart failure Echo in 2021-decompression 60-70% History of sick sinus syndrome, status post pacemaker implant Metoprolol Aspirin Nitroglycerin 0.4 mg sublingually as needed Type 2 diabetes mellitus Home medication : metformin Sliding scale Monitor blood sugar BPH Tamsulosin and finasteride Dyslipidemia Atorvastatin Medication: fenofibrate Diverticulosis CT abdomen and pelvis shows diverticulosis Umbilical hernia Outpatient follow-up GERD OMEPRAZOLE Depression Amitriptyline Insomnia Diphenhydramine 50 mg as needed OBESITY, BMI 33.1 Lifestyle modification Goals of care discussions. More than 19 minute spent with patient. Full code status. Case discussed with Dr. aMe Plan discussed with: Patient, Other (Nurse) Date of Service: Dec 26, 2024 Billing Provider: JONATAN MAE MD Common Visit Codes: [id number] INP/OBS CARE(HIGH) KATHY GOMEZ RESIDENT Dec 26, 2024 19:20 BARBIE MABRY RESIDENT Dec 29, 2024 09:01 JONATAN MAE MD Dec 29, 2024 10:32
[2024-12-26] MEDS: MORPHINE SULFATE INJ 2 MG/ml SYRG IV PRN (20:40)
[2024-12-27 01:00] VITALS: BP 109/57; PULSE 91; RESP 18; TEMP 97.7; O2SAT 90
[2024-12-27 05:00] VITALS: BP 105/51; PULSE 75; RESP 20; TEMP 98; O2SAT 94
--- NOTE | 2024-12-27 05:44 | DVH ---
Exam: XY KUB ABDOMEN SINGLE VIEW Indication: left ureteral stent Comparison: XY KUB ABDOMEN SINGLE VIEW on DOS: 12/25/24, CT CT AB PEL WO CON-NO ORAL OR IV on DOS: 12/16 , CT CT AB PEL WITH IV CON ONLY on DOS: 12/22/23, CT CT AB PEL WO CON-NO ORAL OR IV on DOS: 12/22/23, KUB on DOS: 08/26/21 Technique: 2 radiographic views of the abdomen. Findings: Left ureteral stent. Nonobstructive bowel gas pattern noted. There is no definite evidence for pneumoperitoneum. No abnormal calcifications noted. Impression: 1. Left ureteral stent. 2. Nonobstructive bowel gas pattern.
[2024-12-27 06:13] LABS: Hematocrit 36.9 % (41.0-53.0); Hemoglobin 12.8 g/dL (13.5-17.5); Mean Corpuscular Hemoglobin 32.3 pg (28.0-32.0); Mean Corpuscular Volume 93.3 fL (80.0-100.0); Nucleated Red Blood Cells % 0.0 %
[2024-12-27 06:28] LABS: Anion Gap 10 (5-15); Carbon Dioxide 26 mmol/L (20-31); Chloride 106 mmol/L (98-107); Potassium 4.1 mmol/L (3.5-5.1); Sodium 142 mmol/L (136-145)
[2024-12-27 06:29] LABS: Calcium 9.2 mg/dL (8.7-10.4)
[2024-12-27 06:34] LABS: BUN/Creatinine Ratio 9.0 (10.0-20.0); Blood Urea Nitrogen 10 mg/dL (9-23)
[2024-12-27 06:43] LABS: Glucose 117 mg/dL (74-106)
[2024-12-27 08:00] VITALS: PULSE 77
[2024-12-27 09:00] VITALS: BP 105/59; PULSE 73; RESP 20; TEMP 98.3; O2SAT 91
[2024-12-27] MEDS ORDERED: LEVO750T40 PO (10:02)
[2024-12-27 12:28] VITALS: BP 101/57; PULSE 58; RESP 19; TEMP 98.1; O2SAT 97
[2024-12-27 12:58] VITALS: BP 105/70; PULSE 81; RESP 20; TEMP 98; O2SAT 90
--- NOTE | 2024-12-27 17:19 | DVHDSRES ---
Discharge Summary Date of Admission Resident Creating Document: KATHY GOMEZ RESIDENT Dec 25, 2024 at 13:41 Date of Discharge: Dec 27, 2024 Labs/Diagnostic Data: Laboratory Results Test 12/27/24 11:29 12/27/24 05:36 12/25/24 20:55 12/25/24 14:17 POC Glucose 122 mg/dl (70-106) White Blood Count 6.9 10^3/uL (4.4-10.8) Red Blood Count 3.95 10^6/uL (4.5-5.90) Hemoglobin 12.8 g/dL (13.5-17.5) Hematocrit 36.9 % (41.0-53.0) Mean Corpuscular Volume 93.3 fL (80.0-100.0) Mean Corpuscular Hemoglobin 32.3 pg (28.0-32.0) Mean Corpuscular Hemoglobin Concent 34.6 g/dL (32.0-36.0) Red Cell Distribution Width 15.3 % (11.8-14.3) Platelet Count 302 10^3/uL (140-450) Mean Platelet Volume 7.9 fL (6.9-10.8) Neutrophils (%) (Auto) 83.9 % (37.0-80.0) Lymphocytes (%) (Auto) 11.9 % (10.0-50.0) Monocytes (%) (Auto) 4.1 % (0.0-12.0) Eosinophils (%) (Auto) 0.0 % (0.0-7.0) Basophils (%) (Auto) 0.1 % (0.0-2.0) Neutrophils # (Auto) 5.7 10 ^3/uL (1.6-8.6) Lymphocytes # (Auto) 0.8 10 ^3/uL (0.4-5.4) Monocytes # (Auto) 0.3 10 ^3/uL (0-1.3) Eosinophils # (Auto) 0 10 ^3/uL (0-0.8) Basophils # (Auto) 0 10 ^3/uL (0-0.2) Nucleated Red Blood Cells 0.0 % Sodium Level 142 mmol/L (136-145) Potassium Level 4.1 mmol/L (3.5-5.1) Chloride Level 106 mmol/L (98-107) Carbon Dioxide Level 26 mmol/L (20-31) Anion Gap 10 (5-15) Blood Urea Nitrogen 10 mg/dL (9-23) Creatinine 1.11 mg/dL (0.700-1.30) Glomerular Filtration Rate Calc 72 mL/min (>90) BUN/Creatinine Ratio 9.0 (10.0-20.0) Serum Glucose 117 mg/dL (74-106) Calcium Level 9.2 mg/dL (8.7-10.4) Urine Opiates Screen Pos (NEGATIVE) Urine Fentanyl Screen Neg (NEGATIVE) Urine Barbiturates Screen Neg (NEGATIVE) Urine Phencyclidine Screen Neg (NEGATIVE) Urine Amphetamines Screen Neg (NEGATIVE) Urine Benzodiazepines Screen Neg (NEGATIVE) Urine Cocaine Screen Neg (NEGATIVE) Urine Cannabinoids Screen Neg (NEGATIVE) Prothrombin Time 12.5 sec (9.3-11.8) Prothrombin Time INR 1.20 (0.9-1.15) Activated Partial Thromboplast Time 29.5 SEC (24.5-34.5) Hemoglobin A1c 5.9 % A1C (<5.7) Lactic Acid Level 0.8 mmol/L (0.4-2.0) Phosphorus Level 3.4 mg/dL (2.4-5.1) Magnesium Level 1.8 mg/dL (1.6-2.6) Triglycerides Level 132 mg/dL (< 150) Cholesterol Level 107 mg/dL (< 200) LDL Cholesterol 62 mg/dL (< 100) HDL Cholesterol 28 mg/dL (40-59) Lipase 33 U/L (12-53) Vitamin B12 Level 494 pg/mL (211-911) Vitamin D 25-Hydroxy 29.1 ng/mL (30.0-100) Thyroid Stimulating Hormone (TSH) 2.65 uIU/mL (0.55-4.78) Test 12/25/24 08:12 Urine Color Yellow (Yellow) Urine Clarity Turbid (Clear) Urine pH 5.5 (5.0-9.0) Urine Specific [place] 1.036 (1.001-1.035) Urine Protein 1+ (Negative) Urine Ketones Negative (Negative) Urine Blood 3+ /uL (Negative) Urine Nitrite Negative (Negative) Urine Bilirubin Negative (Negative) Urine Urobilinogen Normal mg/dL (Negative) Urine Leukocyte Esterase Negative /uL (Negative) Urine RBC 392 /hpf (0 - 3) Urine Microscopic WBC 6 /HPF (0-3) Urine Squamous Epithelial Cells None seen /hpf (<5) Urine Bacteria None seen /hpf (None Seen) Urine Mucus Few (None Seen) Urine Glucose Normal mg/dL (Normal) Other Laboratory Tests 12/27/24 05:36 Brief Hx & Hospital Course: This is a 69-year-old male with past medical history of CHF, permanent pacemaker-2019 ([place]), hypertension, hyperlipidemia, type 2 diabetes mellitus, depression, vitamin-D deficiency, insomnia came to ER today with a complaint of left flank pain which started 2 days earlier and getting worse which is 10/10 intensity, on and off, sharp in nature, radiates to lower abdomen. Patient denies any hematuria or dysuria. Similar symptoms 3 months back, Patient visited [facility] 3 months ago and lithotripsy done. Patient stated he passed 2-3 stone in urine after lithotripsy procedure. Angiogram done 2022 and 1 stent placed. Currently denies any fever, chest pain, cough, headache, or any other acute distress. PAST MEDICAL HISTORY: High Lipids, Kidney Stones Surgical History: Appendectomy, Pacemaker Family History: noncontributory Social History: Smoker: Non-Smoker Alcohol: Denies ETOH Use Drugs: Denies Drug Use Lives In: Home Hospital course: Patient admitted for acute pyelonephritis with right-sided nephrolithiasis. CT abdomen and pelvis shows left renal calculus and right ureteric calculi. X-RAY abdomen shows calculi projecting over the right kidney measuring 7 mm, 3 mm, 7 mm. Urinalysis shows no evidence of urinary tract infection . Urology consulted extracorporeal shockwave lithotripsy left distal ureteral and extracorporeal shockwave lithotripsy right renal stone on 12/26/2024. Also cystoscopy and left ureteral stent placement done same day, recommended follow-up urology 1-2 weeks after discharge from hospital. During hospital stay, patient treated with both acute and chronic medical conditions. Patient's symptoms significantly improved. Currently denies any fever, abdominal pain, dysuria, hematuria, headache or any other acute distress. patient advised to continue home medication after discharge from hospital and intake water as tolerated. Patient is hemodynamically stable for discharge. The patient has received maximum benefits from inpatient treatment. Time was given to answer patient/ parents questions and concerns in Layman terms. patient verbalized understanding and agree with treatment and follow-up. Patient was recommended to return to the ED if she experiences any worsening symptoms such as, but not limited to current symptoms. Continue current home medication. follow-up with PCP, discharge Clinic within 2 weeks on Monday morning. Follow-up with urology within 1-2 weeks after discharge from hospital. Patient educated and advised to resume home medication. Constitutional: No: Fever, Chills, Sweats, Weakness, Malaise, Other Eyes: No: Pain, Vision change, Conjunctivae inflammation, Eyelid inflammation, Other, Redness ENT: No: Ear pain, Ear discharge, Nose pain, Nose discharge, Nose congestion, Mouth pain, Mouth swelling, Throat pain, Throat swelling, Other Respiratory: Shortness of breath; No: Cough, Dry, SOB with excertion, Wheezing, Hemoptysis, Pleuritic Pain, Sputum, Wheezing, Other Cardiovascular: No: Chest Pain, Palpitations, Orthopnea, Paroxysmal Noc. Dyspnea, Edema, Lt Headedness, Other Gastrointestinal: No: Nausea, Vomiting, Abdominal Pain, Diarrhea, Constipation, Melena, Hematochezia, Other Genitourinary: No Dysuria, No Frequency, No Incontinence, No Hematuria, No Retention, No Other Musculoskeletal: No: other, neck pain, shoulder pain, arm pain, back pain, hand pain, leg pain, foot pain Skin: No: Rash, Lesions, Jaundice, Bruising, Other Neurological: No: Weakness, Numbness, Incoordination, Change in speech, Confusion, Seizures, Other Case discuss with Dr. Mae and nurse. Consults/Reason for consult Procedure - OPERATIVE REPORT Pre-op. Diagnosis: Ureteral Stone - LEFT, distal 5, 6 and 7 mm Hydronephrosis - LEFT Flank Pain - LEFT Right renal stones, 6-7 mm Post-op. Diagnosis: Same as pre-op diagnosis Operation: Extracorporeal Shockwave Lithotripsy - LEFT distal ureteral Extracorporeal Shockwave Lithotripsy - right renal stones Cystoscopy, Ureteral stent placement - LEFT Anesthesia: General Indications: Informed Consent: Options were discussed. Treatments can include conservative therapy, Extra-corporeal shockwave therapy (ESWL), Ureteroscopy with laser lithotripsy vs extraction, PCNL (percutaneous nephrolithotomy); with or without the use of Stents or retrograde pyelography. Corresponding advantages and disadvantages were also discussed. Questions were addressed. Patient wishes to proceed with left ESWL and possible cystoscopy with left ureteral stent placement. Risks and benefits of the surgery were reviewed with patient which include but are not limited to infection, bleeding, urosepsis, renal hemorrhage/hematoma formation, ureteral perforation, ureteral stricture formation, need for further surgery if stone does not break, ureteral obstruction from stone fragments, cardiac arrthymia and risks of anesthesia. Despite these risks, patient wishes to proceed with the surgery. Patient fully understood and signed the consent. Details of Procedure: Under satisfactory anesthesia, the patient was positioned on the lithotripsy table in the lithotomy position. Area of the genitalia was prepped and draped in usual sterile manner. Twenty-two Togolese rigid cystoscope was used to inspect the urethra in the bladder. The left ureteric orifice was cannulated with six Togolese open-ended catheter and retrograde pyelogram was performed. This demonstrated multiple filling defects in the distal ureteral segment measuring five, six, and 7 mm stones. Guidewire was then inserted and accessed into the renal pelvis. Open-ended catheter was then removed and a five Togolese by 26 cm polaris loop ureteral stent was placed. Cystoscope was removed along with multiple bladder stones found that extruded from the left ureter with stent placement. Beavers catheter was inserted. Patient was positioned on the lithotripsy table to place the left distal ureteral calculi onto the F2 focus. Three thousand shocks were delivered at level 7-9 to treat the left distal ureteral calculi. Once the left distal ureteral calculi were treated, patient was repositioned so that the right lower pole renal stones are placed onto the F2 focus. The stones were treated with 2400 shock waves for fragmentation. Patient tolerated the procedure well. He was awakened and taken to recovery room in stable condition Specimens: None Complications: None Findings: Stone Laterality: Left distal ureteral stones, 5-7 mm and right lower pole renal stones, 6-7 mm Shocks Delivered: 3000 / 2400 Max Power settin /6 Fragmentation Quality: Well Ureteral stent size & length: [address] left ureteral stent Notes: Cystoscopy with stent removal in 2-4 weeks DEMETRI MANN MD Dec 26, 2024 16:51 DICTATED BY: DEMETRI MANN MD DICATED DATE/TIME: 12/26/24 1651 Operations or Procedures CLINICAL INFORMATION: Left lower abdominal pain radiating to the left lower back. TECHNIQUE: Axial CT images of the abdomen and pelvis were obtained without IV contrast. Coronal and sagittal reformatted images were obtained, reviewed, and stored. Evaluation of the parenchymal organs is limited without IV contrast. Evaluation of the bowel and mesentery is limited without oral contrast. All CT scans at this medical facility are performed using dose modulation techniques as appropriate to a performed exam including the following: Automated exposure control was utilized; adjustment of the MA and/or KV according to patient size; and use of iterative reconstruction technique. CTDIvol = 18.42 mGy DLP = 1126.04 mGy-cm COMPARISON: CT CT AB PEL WO CON-NO ORAL OR IV on DOS: 12/22/23, ECIDC on DOS: 02/23/22, CT ABD PELVIS WO CONTRAST on DOS: 04/19/21 FINDINGS: Lung bases: Dependent atelectasis in the lower lobes. Liver: Grossly unremarkable in its noncontrast enhanced appearance. No abnormal density or focal lesion identified. Biliary: Increased density in the gallbladder, possible sludge or vicarious excretion of contrast. No biliary ductal dilatation. Spleen: Unremarkable. Pancreas: Moderate fatty changes in the pancreas. Adrenal glands: Unremarkable. No mass. Kidneys: There is contrast visualized in the renal collecting systems and bladder, from recent IV contrast administration. Moderate left hydronephrosis. Can not exclude obstructing calculus in the distal left ureter, although difficult to delineate due to contrast in the left ureter. No contrast visualized in the most distal aspect of the left ureter at the time of imaging. Multiple nonobstructing right renal calculi are seen. Limited evaluation for left renal calculi due to contrast in the left renal collecting system. Aorta/Vascular: Scattered atherosclerotic calcification. No abdominal aortic aneurysm. Retroperitoneum: No mass or lymphadenopathy. Bowel/mesentery: No small bowel obstruction. No free air or free fluid. Appendix is not visualized, appears to be surgically absent. Surgical anastomosis at the sigmoid colon. There are scattered small colonic diverticula without adjacent inflammatory changes to suggest diverticulitis. Calcific densities in the stomach, likely ingested material. Pelvic organs: Grossly unremarkable. Bladder: Excretion of IV contrast into the bladder. Moderate circumferential thickening of the bladder wall, may be partly due to underdistention. Abdominal wall: Small fat containing umbilical hernia. Supraumbilical ventral hernia with a loop of transverse colon extending into the hernia sac without definite evidence of obstruction. Bones: No acute fracture or suspicious intraosseous lesion. IMPRESSION: 1. Moderate left hydronephrosis. There is contrast in the renal collecting systems and bladder from recent IV contrast administration, limiting evaluation for renal and ureteral calculi. Possible obstructing calculus in the distal left ureter, with no contrast visualized in the most distal portion of the left ureter at the time of imaging. There are nonobstructing right renal calculi visualized. 2. Bladder wall thickening may be due to underdistention. Correlate clinically to exclude cystitis. 3. Supraumbilical ventral hernia containing a loop of transverse colon without definite evidence of obstruction. Correlate with clinical findings. 4. Small fat containing umbilical hernia. 5. Scattered colonic diverticula without adjacent inflammatory changes to suggest diverticulitis. 6. Additional findings as described above. ATED BY: JUAN MIGUEL WOODS DO DICTATED DATE/TIME: 12/25/24 0918 CHEST RADIOGRAPH Indication: Abdominal pain Technique: Single frontal view of the chest was obtained COMPARISON: CHEST PORTABLE on DOS: 02/23/22, CXRP on DOS: 02/23/22, EKG on DOS: 02/23/22, EKG on DOS: 02/23/22 FINDINGS: Lines and Tubes: Left chest pacemaker Lungs: Congestion Pleura: No effusion. No pneumothorax. Cardiomediastinal contours: Unremarkable Bones: Unremarkable IMPRESSION: Increased interstital prominence. This may represent pulmonary vascular congestion and/or viral pneumonia. Clinical correlation advised. ATED BY: STEVE HARE MD DICTATED DATE/TIME: 12/25/24 1447 Indication: Urolithiasis Technique: XY KUB ABDOMEN SINGLE VIEWXY Comparison: None FINDINGS/IMPRESSION: Large volume stool in the colon. Calculi projecting over the right kidney measuring 7 mm, 3 mm, 7 mm. No evidence for free intraperitoneal air. Postsurgical changes left pelvis ATED BY: KLAEB WYMAN MD DICTATED DATE/TIME: 12/25/24 1709 Exam: XY KUB ABDOMEN SINGLE VIEW Indication: left ureteral stent Comparison: XY KUB ABDOMEN SINGLE VIEW on DOS: 12/25/24, CT CT AB PEL WO CON-NO ORAL OR IV on DOS: 12/25/24, CT CT AB PEL WITH IV CON ONLY on DOS: 12/22/23, CT CT AB PEL WO CON-NO ORAL OR IV on DOS: 12/22/23, KUB on DOS: 08/26/21 Technique: 2 radiographic views of the abdomen. Findings: Left ureteral stent. Nonobstructive bowel gas pattern noted. There is no definite evidence for pneumoperitoneum. No abnormal calcifications noted. Impression: 1. Left ureteral stent. 2. Nonobstructive bowel gas pattern. ATED BY: REUBEN MARRERO MD DICTATED DATE/TIME: 12/27/24541 Condition at Discharge: Stable Final Diagnosis/Problems List Nephrolithiasis with hydronephrosis status post ureteral stent placement Acute pyelonephritis with right-sided nephrolithiasis Possible left distal ureteral calculus Left hydronephrosis Chronic diastolic heart failure Echo in 2021-decompression 60-70% History of sick sinus syndrome, status post pacemaker implant Type 2 diabetes mellitus BPH Dyslipidemia Diverticulosis Umbilical hernia GERD Insomnia OBESITY, BMI 33.1 Discharge Disposition: Home Discharge Instruct/Medications Diet: Cardiac 2g Na,low cholest Activity: No Restrictions, As Tolerated Follow Up/Referral: PCP Discharge Clinic Urology. See urologist in 2-4 weeks, eventual stent removal Medications: Levofloxacin 500 mg p.o. daily for seven days Rest of home medication Scheduled Aspirin (Aspir-Low), 81 MG PO DAILY, (Reported) Atorvastatin Calcium (Lipitor), 1 TAB PO QPM, (Reported) Cholecalciferol (Vitamin D3 1.25 mg (63196 Ut)), 1 CAP PO DAILY, (Reported) Etodolac (Etodolac), 400 MG PO BID, (Reported) Finasteride (Finasteride), 5 MG PO DAILY, (Reported) Hydrocodone-Acetaminophen (Hydrocodone/Acetaminophen 10-325 mg), 1 TAB PO TID, (Reported) Levofloxacin Hemihydrate (Levofloxacin), 1 TAB PO DAILY Metoclopramide Hcl (Metoclopramide Hcl), 10 MG PO DAILY, (Reported) Metoprolol Tartrate (Lopressor Tablet), 1 TAB PO TID, (Reported) Omeprazole (Omeprazole Dr), 20 MG PO QAM, (Reported) Oxycodone W/ Acetaminophen (Percocet 5/325MG), 1 TAB PO BID Potassium Citrate (Urocit-K 10), 1,080 MG PO Q8HR Tamsulosin Hcl (Flomax), 1 CAP PO DAILY Scheduled PRN Amitriptyline Hcl (Amitriptyline Hcl), 50 MG PO HS PRN for FOR INSOMNIA, (Reported) Diphenhydramine Hcl (Diphenhydramine Hcl), 50 MG PO DAILY PRN for ALLERGIES, (Reported) Docusate Sodium (Docusate Sodium), 100 MG PO BID PRN for FOR CONSTIPATION, (Reported) Lactulose (Lactulose), 10 GM PO DAILY PRN for CONSTIPATION, (Reported) Miscellaneous Medications Metronidazole (Flagyl), 500 MG PO, (Reported) Discontinued Medications Ciprofloxacin Hcl (Cipro), 500 MG PO DAILY Discharge Statement: "Patient was advised to return to the ER or call 911 if any headaches, dizziness, shortness of breath, chest pain, abdominal pain, bleeding, fevers, or worsening of medical condition. Patient was counseled about treatment plan, medications, possible side effects, patientverbalized understanding. All questions were answered to the best of my ability. This discharge took greater then 30 minutes in planning, reviewing documentation, counseling the patient, and discussing with other team members." ASSESSMENT ASSESSMENT Assessment Nephrolithiasis with hydronephrosis status post ureteral stent placement Date of Service: Dec 27, 2024 Billing Provider: JONATAN MAE MD Common Visit Codes: 66266-PQA/OBS DISCH DAY >30min KATHY GOMEZ RESIDENT Dec 27, 2024 17:19 BARBIE MABRY RESIDENT Dec 29, 2024 09:04 JONATAN MAE MD Dec 29, 2024 10:49
--- NOTE | 2024-12-31 07:51 | ECG ---
[facility] Test Date: 2024-12-26 Test Time: 10:00:56 Pat Name: SKYLER CEE Department: Respiratoy Room: 0215 A Gender: M Transcripter: : 1955 Requested By: KATHY GOMEZ Order Number: [id number] Reading MD: Chavez Dunn Measurements Intervals [place] Rate: 76 P: 23 TN: 191 QRS: -40 QRSD: 168 T: -25 QT: 442 QTc: 498 Interpretive Statements Sinus rhythm RBBB and LAFB Electronically Signed On 12-31-2024 18:08:16 PDT by Chavez Dunn Please click the below link to view image of tracing.
== END 2024-12-27 13:03 | disposition home or self-care (01) | DRG 660 ==
LOC: ER 07:52 → OVERFLOW 13:41 → CENTRAL 18:49
PROVIDERS: ADMIT Student in an Organized Health Care Education/Training Program; ATTEND Student in an Organized Health Care Education/Training Program
PROC: 0T778DZ Dilation of Left Ureter with Intraluminal Device, Via Natural or Artificial Opening Endoscopic (ICD-10-PCS; principal; 2024-12-25)
PROC: 0TF7XZZ Fragmentation in Left Ureter, External Approach (ICD-10-PCS; 2024-12-25)
PROC: BT1D1ZZ Fluoroscopy of Right Kidney, Ureter and Bladder using Low Osmolar Contrast (ICD-10-PCS; 2024-12-25)
DX: N13.6 Pyonephrosis (principal); I50.32 Chronic diastolic (congestive) heart failure; N20.2 Calculus of kidney with calculus of ureter; E11.9 Type 2 diabetes mellitus without complications; E78.5 Hyperlipidemia, unspecified; N40.0 Benign prostatic hyperplasia without lower urinary tract symptoms; G47.00 Insomnia, unspecified; F32.A Depression, unspecified; E66.9 Obesity, unspecified; K21.9 Gastro-esophageal reflux disease without esophagitis; I11.0 Hypertensive heart disease with heart failure; E55.9 Vitamin D deficiency, unspecified; K42.9 Umbilical hernia without obstruction or gangrene; K57.30 Diverticulosis of large intestine without perforation or abscess without bleeding; Z88.0 Allergy status to penicillin; Z79.82 Long term (current) use of aspirin; Z95.0 Presence of cardiac pacemaker; Z88.5 Allergy status to narcotic agent; Z68.33 Body mass index [BMI] 33.0-33.9, adult; Z79.899 Other long term (current) drug therapy
CPT/HCPCS: 36415; 71045; 74018; 74176; 80048; 80061; 80307; 81001; 82306; 82360; 82607; 82962; 83036; 83605; 83690; 83735; 84100; 84443; 85025; 85610; 85730; 87040; 87086; 93005; 96361; 96374; A4344; G0378; J1100; J1885; J2003; J2405; J2704